=== PATIENT | female | born 1940 | race Caucasian/White ===

== ENCOUNTER 2023-11-05 18:27 | Inpatient (IN) | payer MEDICARE, BC, SELFPAY ==
[2023-11-05 11:45] VITALS: BP 136/99
[2023-11-05 12:08] LABS: % Basophils 0.5 % (0-2); % Eosinophils 1.4 % (0-6); % Immature Granulocytes 0.5 % (0-0.5); % Lymphocytes 22.4 % (20.5-51.1); % Monocytes 8.8 % (1.7-9.3); % Neutrophils 66.4 % (42.2-75.2); Absolute Eosinophils 0.1 10^3/uL (0-0.7); Absolute Lymphocytes 1.3 10^3/uL (1.2-3.4); Absolute Monocytes 0.5 10^3/uL (0.1-0.6); Absolute Neutrophils 3.8 10^3/uL (1.4-6.5); Hematocrit 35.9 % (37.0-47.0); Hemoglobin 12.2 g/dL (12.0-16.0); Mean Corpuscular Hgb 33.1 pg (27.0-31.0); Mean Corpuscular Volume 97.3 fL (81.0-99.0); Mean Platelet Volume 9.1 fL (7.4-10.4); Nucleated Red Blood Cells % 0 %; Platelet Count 242 10^3/uL (130-400); Red Blood Cell Count 3.69 10^6/uL (4.20-5.40); Red Cell Dist. Width 12.9 % (11.5-14.5); White Blood Cell Count 5.7 10^3/uL (4.8-10.8)
[2023-11-05 12:26] LABS: ALT (SGPT) 19 U/L (0-35); AST (SGOT) 38 U/L (14-36); Albumin 4.5 g/dl (3.5-5.0); Alkaline Phosphatase 84 U/L (38-126); Blood Urea Nitrogen 24 mg/dl (7-17); Calcium 9.5 mg/dl (8.4-10.2); Carbon Dioxide 26 mmol/L (22-30); Chloride 103 mmol/L (98-107); Glucose 105 mg/dl (70-99); Potassium 4.9 mmol/L (3.5-5.1); Sodium 138 mmol/L (135-145); Total Protein 7.5 g/dl (6.3-8.2); eGFR 49.55
[2023-11-05 12:31] LABS: NT-proBNP 1090 pg/ml
[2023-11-05 12:51] LABS: Total Bilirubin 0.6 mg/dl (0.2-1.3)
--- NOTE | 2023-11-05 14:10 | ED.GENMED ---
History of Present Illness
General
Chief Complaint: Breathing Problem
Source: patient
Exam Limitations: none
Time Seen by Provider: 11/05/23 13:36
Nursing documentation reviewed up to this point in time: agreed with
Travel History
Have you had any contact with someone who has COVID-19?: No
Do you have any symptoms of coronavirus? Fever > 100 degrees, chills, cough, shortness of breath, sore throat, loss of taste or smell, muscle aches, or headache?: No
History of Present Illness
History of Present Illness:
83 Y/O F with h/o remote afib no longer anticoagulated, had ablation x 2
h/o breast ca s/p lumpectomy
htn, hld
on baby asa
here for exertinoal dyspnea x 1 week
says prior to 1 week ago, she was able to walk normal distances without sob
but recently she has had worsening sob with exertion; she is able to walk around her house without symptoms but says that she walked half a city block yesterday and had to stop and catch her breath
this is not normal fo rher
no chest pain, pleuritic pain, nausea, vomiting, diarrhea, leg swelling, syncope, vomiting, cough
pt has not spoken with her doctor about this becuase she has only had the symptoms brielfy
Past History
Past History
ED Past Medical History: Arrthythmia (PAF ), CVA, HTN and Other (History of hepatitis while in college, arthritis, cataracts, anemia, breast cancer,breast cancer)
ED Past Surgical History: Cardiac (Ablation), Gynecological (2 ectopic pregnancies) and Other (Right lumpectomy and diagnoses breast cancer, polypectomy)
Social History
Tobacco: Former smoker
Personal:
Living: with family
Employment: Retired
Family History
Family History: Negative Early CAD
Review of Systems
Review of Systems
Allergies reviewed?: Yes
All Other Systems: Not applicable
Phy Exam
Physical Exam
Physical Exam:
GENERAL: Alert , in no apparent distress
EYE: pupils equal and reactive
NECK: Supple
ENT: o/p clr, mmm.
CARDIAC: tachy 100s . no murmur appreciated;
LUNGS: Clear breath sounds bilaterally, no acute respiratory distress, no wheezes/rales/rhonchi. speaking in full sentences
ABDOMEN: Soft, without focal tenderness, no r/g, no cvat, normal bowel sounds
NEUROLOGICAL: Alert and oriented, no focal neuro deficits
SKIN: Warm and dry, skin intact.
MUSCULOSKELETAL: No edema, well perfused. neg andree's sign
PSYCH: Normal and appropriate interaction.
Scores
Heart Failure Risk
Heart Failure Risk Score: Not Applicable
Course
Orders/Labs/Results
Orders:
Orders
11/05/23 11:48
Electrocardiogram (*1) Urgent
Reason for Study: Bradycardia / Tachycardia
EKG- Treatment ONCE
11/05/23 11:54
BNP [NT-proBNP] Urgent
Complete Blood Count/With Diff Urgent
Comprehensive Metabolic Panel Urgent
Troponin I Urgent
Comment: ADD-ON
11/05/23 13:34
CR Chest - 2 Views Urgent
Comment:
Reason For Exam: Increasing SOB over past few weeks
11/05/23 14:03
Add On- LAB Urgent
Tests Added?: troponin
11/05/23 14:24
CT Chest Pe Study Urgent
Comment:
Reason For Exam: exertional sob, tachycardia
11/05/23 17:19
Furosemide [Lasix] 20 mg IV NOW STA
11/05/23 17:35
Apixaban [Eliquis] 5 mg PO NOW STA
11/05/23 18:10
Admit/Transfer Patient As Directed
Co-Sign Provider:
Level of Care: Inpatient admission
Assign to:: Telemetry
Physician / Group: adalid
Diagnosis: atrial flutter
Reason for Telemetry: Arrhythmia
Date to Stop Telemetry: 11/08/23
Time to Stop Telemetry: 11:00
Reason for Hospitalization: atral flutter
Expected length of stay greater than two midnights?: Yes
ELOS- Estimated Length of Stay in days: 3
I certify the patient meets the requirements for IP care: Yes
11/05/23 18:11
Code Status As Directed
Resuscitation Status: Full Code
11/08/23 11:00
DC Protocol for Telemetry ONCE
Abnormal Lab Results
11/05/23
11:54
RBC 3.69 L 10^6/uL
(4.20-5.40)
Hct 35.9 L %
(37.0-47.0)
MCH 33.1 H pg
(27.0-31.0)
BUN 24 H mg/dl
(7-17)
Creatinine 1.1 H mg/dL
(0.6-1.0)
Glucose 105 H mg/dl
(70-99)
AST 38 H U/L
(14-36)
11/05/23 11:54
11/05/23 11:54
Vital Signs
Initial and Last Documented VS:
Initial Vital Signs
Temp Pulse Resp BP Pulse Ox
98.4 F 111 18 136/99 99
11/05/23 11:45 11/05/23 11:45 11/05/23 11:45 11/05/23 11:45 11/05/23 11:45
Last Documented Vital Signs
Temp Pulse Resp BP Pulse Ox
98.4 F 108 18 116/89 99
11/05/23 11:45 11/05/23 18:28 11/05/23 18:28 11/05/23 18:31 11/05/23 18:28
MDM/Problems Addressed
Differential Diagnosis Includes:
afib with rvr, chf
MDM/Problems Addressed:
83 y/o F with h/o remote afib s/p ablation on metoprolol
1 week of GASTON
no cp
HR 110s; no hypoxia; ekg is aflutter 2:1 no ischemia;
not anticoatulated
bnp 1000
pe study neg, small R pleural effusion
d/w dr. latham cards for sangnaren who recommended lasix, rate contorl as needed and NPO after midnight in case of ARAMIS cardioversion;
*Critical Care Note
Total Time (30-74mins, 75-104mins- exclusive of procedures): Not Applicable
ED Attending Note
-
Portions of this chart may have been created with voice recognition software.� Occasional wrong word or��sound alike� substitutions may have occurred due to the inherent limitations of voice recognition software.
Discharge Plan
Departure
Patient Disposition: Admit
Date of Disposition: 11/05/23
Time of Disposition: 17:18
Admit to: Med/Surg and Telemetry
Presentation/result/management discussed w/ accepting MD/DO: Hospitalist
Condition: Fair
Covid-19: Not Applicable
Discharge Problem:
Atrial fibrillation with rapid ventricular response
Interventions
Interventions:
*Risk Screen - Suicide Last Done: 11/05/23 11:45
*General Assessment Last Done: 11/05/23 11:45
*Neglect/Abuse Screening Last Done: 11/05/23 11:45
*ED COVID-19 Vaccine History Last Done: 11/05/23 11:45
ED- Cardiac Assessment Last Done: 11/05/23 13:29
ED- Pulmonary Assessment Last Done: 11/05/23 13:29
[2023-11-05 15:00] LABS: Troponin I < 0.012 ng/ml
--- NOTE | 2023-11-05 17:49 | HPS.HSE ---
Addendum entered and electronically signed by Ryann Fuentes MD 11/05/23 18:31:
see update note for addendum
Original Note:
Family Physician
-
Family Physician: Emanuel Madera
Chief Complaint
-
Short of breath
History of Present Illness
83-year-old with past medical history for A-fib status post cardiac ablation x 2, breast cancer, hypertension, hyperlipidemia presented to us with exertional dyspnea for 1 week. Denied orthopnea. Patient denied any chest pain. Patient denied any
gain or lower extremities edema patient denied fever, chills. Patient denied runny nose, congestion, cough. Patient denied abdominal pain, nausea, vomiting, diarrhea. Patient denied dysuria hematuria
Chest CT with pleural effusion. Patient received a dose of Lasix in ER patient also received dose of Eliquis in ER. Admitting for further management
Medical History
Past Medical History
Past Medical History: Reports Other
Additional Past Medical History:
TIA
Paroxysmal A-fib
Hyperlipidemia
Breast cancer
Hypertension
Lung cancer
Past Surgical History: Reports Other
Additional Past Surgical History:
Right upper lobe lung resection
Right breast cancer lumpectomy
Cardiac ablation
Social History
Tobacco: Former Smoker
Alcohol: Daily (Wine daily)
Family History
Family History: Not pertinent
Allergies / Home Medications
Allergies reflects when Allergies were last updated in [facility].
Home Medications with original date entered in [facility]
Allergy/Medication List:
Allergies
Allergy/AdvReac Type Severity Reaction Status Date / Time
codeine [Codeine] Allergy Unknown BP Verified 11/05/23 11:46
decreased
amoxicillin [Amoxicillin] Allergy headaches Verified 11/05/23 11:46
Home Medications
anastrozole 1 mg tablet 1 mg PO QPM 04/24/14
cholecalciferol (vitamin D3) 25 mcg (1,000 unit) capsule (Vitamin D3) 1,000 unit PO DAILY 09/26/16
metoprolol succinate 25 mg tablet,extended release 24 hr 37.5 mg PO BID 09/27/16
Review of Systems
-
Constitutional: Reports No Symptoms
EENT: Reports No Symptoms
Respiratory: Reports Trouble Breathing
Cardiac: Reports No Symptoms
Abdomen/GI: Reports No Symptoms
: Reports No Symptoms
Musculoskeletal: Reports No Symptoms
Skin: Reports No Symptoms
Neurological: Reports No Symptoms
Endocrine: Reports No Symptoms
Hematologic/Lymphatic: Reports No Symptoms
Psych: Reports No Symptoms
Physical Exam
Vital Signs
Vital Signs
Temp Pulse Resp BP Pulse Ox
98.4 F 109 18 136/99 99
11/05/23 11:45 11/05/23 14:06 11/05/23 14:06 11/05/23 11:45 11/05/23 14:06
Physical Exam
General: Well Developed, Well Nourished and No Apparent Distress
HEENT: NormoCephalic, Moist mucous membranes and Atraumatic
Respiratory: Clear
Cardiac: S1/S2 and Regular Rhythm; No Murmur or Rub
GI: Soft, Non Tender, Non Distended and Normal Bowel Sounds; No Organomegaly
Rectal: Deferred by Provider
Musculoskeletal: No Clubbing, No Cyanosis and No Edema
Skin: No Rash
Neuro: AO x 3 and Nonfocal/grossly intact
Psych: Calm
Laboratory Results
-
11/05/23 11:54
11/05/23 11:54
Laboratory Results
Total Bilirubin 0.6 mg/dl (0.2-1.3) 11/05/23 11:54
AST 38 U/L (14-36) H 11/05/23 11:54
ALT 19 U/L (0-35) 11/05/23 11:54
Alkaline Phosphatase 84 U/L (38-126) 11/05/23 11:54
Troponin I < 0.012 ng/ml 11/05/23 11:54
Data Reviewed
-
Diagnostic Radiology: Report Reviewed by me
CT Scan: Report Reviewed by me
Lab Data: Labs Reviewed by me
Impression/Plan
-
# Dyspneic on exertion likely from pleural effusion
-BNP 1090
-Lasix 20 daily
-Chest CT with no evidence of PE, small right pleural effusion
-Chest x-ray with loss of lung volume with pleural parenchymal airspace disease in the right hemithorax most consistent with prior right upper lobectomy.
-Received a dose of Lasix in ER
# A flutter
-N.p.o. after midnight for ARAMIS cardioversion
-Atrial tachycardia with 221 conduction versus atypical a flutter
-Patient received a dose of Eliquis in the ER
-Cardiology consulted
-Eliquis continued
# Chronic kidney disease stage II
-Creatinine 1.1, BUN 24
-Continue to monitor
# History of breast cancer
-Status postlumpectomy
# History of lung cancer
-Status post lobectomy
# Essential hypertension
-Metoprolol continued
# Hyperlipidemia
- statin continued
# DVT prophylaxis
-Eliquis
# CODE STATUS
-Full code
[2023-11-05] MEDS: LASIX 20 MG IV (17:50)
[2023-11-05] MEDS: ELIQUIS 5 MG PO (17:51)
[2023-11-05 18:28] VITALS: BP 138/102
--- NOTE | 2023-11-05 18:28 | W.PN.UPDATE ---
Update Note
Progress Note Update
I saw and examined the patient.
The UNDERCOVER AGENT Elpidio's note was reviewed and I agree with the note.
Comment: 83 y/o F hx of Afib s/p ablation, breast can, HTN, HLD presents with dyspnea x 1 week. no CP. No other complaints. Patient found to have pleural effusion, CHF and rapid Aflutter. Pt given IV Lasix and admitted with plan for Cardioversion in
AM.
Physical Exam
General: Well Developed, Well Nourished and No Apparent Distress
HEENT: NormoCephalic, Moist mucous membranes and Atraumatic
Respiratory: Clear
Cardiac: S1/S2 and Regular Rhythm; No Murmur or Rub
GI: Soft, Non Tender, Non Distended and Normal Bowel Sounds; No Organomegaly
Rectal: Deferred by Provider
Musculoskeletal: No Clubbing, No Cyanosis and No Edema
Skin: No Rash
Neuro: AO x 3 and Nonfocal/grossly intact
Psych: Calm
Assessment:
# Dyspneic on exertion likely from pleural effusion
-BNP 1090
-Lasix 20 daily
-Chest CT with no evidence of PE, small right pleural effusion
-Chest x-ray with loss of lung volume with pleural parenchymal airspace disease in the right hemithorax most consistent with prior right upper lobectomy.
-Received a dose of Lasix in ER
# A flutter
-N.p.o. after midnight for ARAMIS cardioversion
-Atrial tachycardia with 221 conduction versus atypical a flutter
-Patient received a dose of Eliquis in the ER
-Cardiology consulted
-Eliquis continued
# Chronic kidney disease stage II
-Creatinine 1.1, BUN 24
-Continue to monitor
# History of breast cancer
-Status postlumpectomy
# History of lung cancer
-Status post lobectomy
# Essential hypertension
-Metoprolol continued
# Hyperlipidemia
- statin continued
# DVT prophylaxis
-Eliquis
# CODE STATUS
-Full code
[2023-11-05 18:31] VITALS: BP 116/89
[2023-11-05] MEDS: TOPROL XL 37.5 MG PO (22:09)
[2023-11-05 22:13] VITALS: BP 127/94
[2023-11-05 22:14] VITALS: BMI 25.0
--- NOTE | 2023-11-05 23:00 | PTCARENOTE ---
Pt arrived to unit from ED and ambulated independently from stretcher into bed. Pt is AAOx3, occasionally forgetful but rings appropriately. Pt oriented to room, call muro within reach. VS on admission stable, no complaints of pain at this time.
[2023-11-05 23:03] VITALS: BMI 24.6
[2023-11-05 23:04] VITALS: BP 135/96
[2023-11-05 23:18] VITALS: BMI 24.6
[2023-11-06] VITALS (7 sets, daily range): BP systolic 91–129; BP diastolic 69–89; PULSE 110; O2SAT 97; BMI 24.5
[2023-11-06] MEDS: TYLENOL 650 MG PO (01:22)
--- NOTE | 2023-11-06 01:30 | PTCARENOTE ---
Pt reports 3/10 pain to lower back, no PRN pain meds ordered. House RIDDLER OPERATOR Thania Joyner notified, order for PRN Tylenol 650mg q4h acknowledged and provided to pt.
[2023-11-06 07:05] LABS: Hematocrit 36.1 % (37.0-47.0); Hemoglobin 12.5 g/dL (12.0-16.0); Mean Corp Hgb Conc. 34.6 g/dL (33.0-37.0); Mean Corpuscular Hgb 32.2 pg (27.0-31.0); Mean Platelet Volume 9.5 fL (7.4-10.4); Platelet Count 241 10^3/uL (130-400); Red Blood Cell Count 3.88 10^6/uL (4.20-5.40); Red Cell Dist. Width 12.8 % (11.5-14.5); White Blood Cell Count 6.2 10^3/uL (4.8-10.8)
[2023-11-06 07:33] LABS: ALT (SGPT) 19 U/L (0-35); AST (SGOT) 41 U/L (14-36); Albumin 4.3 g/dl (3.5-5.0); Alkaline Phosphatase 74 U/L (38-126); Blood Urea Nitrogen 23 mg/dl (7-17); Calcium 9.4 mg/dl (8.4-10.2); Carbon Dioxide 25 mmol/L (22-30); Chloride 101 mmol/L (98-107); Direct Bilirubin 0.3 mg/dl (0.0-0.4); Estimated Creatinine Clearance 45 ml/min; Glucose 95 mg/dl (70-99); Magnesium 2.1 mg/dl (1.6-2.3); Potassium 4.2 mmol/L (3.5-5.1); Sodium 136 mmol/L (135-145); Total Bilirubin 0.6 mg/dl (0.2-1.3); Total Cholesterol 215 mg/dl (50-199); Total Protein 7.4 g/dl (6.3-8.2); Triglyceride 100 mg/dl (10-149); Very Low Density Lipoprotein 20 mg/dl (0-30); eGFR 55.55
[2023-11-06 07:46] LABS: HDL Cholesterol 111 mg/dl; LDL Cholesterol, Calculated 84 mg/dl
[2023-11-06 07:58] LABS: TSH Reflex To Free T4 3.26 uIU/ml (0.47-4.68)
[2023-11-06] MEDS: TOPROL XL 37.5 MG PO ×2 (09:38→20:44)
[2023-11-06] MEDS: ELIQUIS 5 MG PO ×2 (09:39→20:44)
[2023-11-06] MEDS: LASIX 20 MG IV (09:39)
[2023-11-06] MEDS: ASPIR LOW (ENTERIC COATED) 81 MG PO (09:39)
--- NOTE | 2023-11-06 10:02 | CON.CAR ---
Addendum entered and electronically signed by Dwain Mcclure MD 11/06/23 13:10:
I saw and examined the patient.
The TRUSS BUILDER or PA's note was reviewed and I agree with the note.
Comment: General: Well developed, well nourished in NAD.
Neck: Supple, no JVD, HJR, carotids +2 B/L, no bruits bilaterally.
Heart: Non displaced PMI, irregular, no murmurs, No S3, S4, no rubs.
Lungs: Clear to auscultation bilaterally, no wheeze, rhonchi, rubs bilaterally,
normal expiratory phase.
Abdomen: Normal bowel sounds, soft, non-tender, non-distended.
Extremities: No clubbing, cyanosis or edema bilaterally.
Neuro: Grossly nonfocal, awake, alert and oriented x3.
Claudine has a history of A-fib status post ablations in 2010 2017, breast cancer, lung cancer status post lobectomy, hypertension, hyperlipidemia. She has had shortness of breath for 1 week. She came to the ER and found to be in rapid A-fib. CT of
chest was negative for pulm embolism and did show a small right pleural effusion and proBNP was elevated at 1090.
Will continue rate control with metoprolol. Will plan on ARAMIS/cardioversion on 11/07/2023. Also continue IV Lasix for another 24 hours then consider change to oral Lasix on 11/07/2023. Eliquis 5 mg p.o. twice daily has been started. Discussed with
patient and sister at bedside and patient's son was contacted.
Original Note:
Consultation
Consultation Request
Date/Time Consultation Requested: 11/05/2023
Date/Time Consultation Performed: 11/06/2023
Requesting Provider: Dr. Fuentes
Performing Provider: Yari Bonilla PA-C for Dr. Dwain Mcclure
Reason for Consultation: Atrial fibrillation
Medical History
-
History of Present Illness:
Patient is a 83-year-old with past medical history for A-fib status post PVI ablation x 2 (2010 & 2018), breast cancer, lung cancer s/p lobectomy, hypertension, hyperlipidemia presented to us with exertional dyspnea for 1 week. Patient was
previously followed by Dr. Jesus Del Rio however has not been seen in cardiology office since May 2021. She presented to emergency department 11/05/2023 with worsening dyspnea on exertion after her sister was visiting. She was noted to be
in atrial fibrillation with rapid ventricular response. Chest x-ray with loss of lung volume with pleural-parenchymal airspace in the right hemithorax consistent with prior right upper lobectomy. CT of chest was negative for PE and showed small
right pleural effusion. proBNP was noted to be elevated at 1090. Patient received IV Lasix in emergency department. Given she was found to be in atrial fibrillation she was placed on anticoagulation with Eliquis. Unclear how long patient has
been in atrial fibrillation.
PMH:
TIA 2009 with dysarthria
Paroxysmal A-fib
Status post PVI ablation 2010 at [facility]
Status post PVI ablation 09/21/2016
Medtronic Linq (has reached)
Hyperlipidemia
Hypertension
Breast cancer status post lumpectomy x 2
Hypertension
Lung cancer s/p right upper lobe lobectomy 2018
Cognitive impairment
Past Medical History
Past Medical History: Other (see hpi)
Past Surgical History: Cardiac (Cardiac ablation x 2) and Other (Right upper lobe lung resection Right breast cancer lumpectomy )
Social History
Tobacco: Former Smoker
Alcohol: Daily (wine daily)
Drug: None
Personal:
Living: Alone
Family History
Family History: CAD, Cancer and Other (Stroke)
Allergies / Home Medications
Allergy/AdvReac Type Severity Reaction Status Date / Time
amoxicillin [Amoxicillin] Allergy headaches Verified 11/05/23 11:46
codeine [Codeine] Allergy BP Verified 11/05/23 20:50
decreased
�Medication �Instructions �Recorded �Confirmed �Type
cholecalciferol (vitamin D3) 25 3,000 unit PO DAILY Supplement 09/26/16 11/05/23 History
mcg (1,000 unit) capsule (Vitamin
D3)
metoprolol succinate 25 mg 25 mg PO DAILY Blood Pressure 09/27/16 11/05/23 History
tablet,extended release 24 hr
aspirin 81 mg tablet,delayed 81 mg PO DAILY Blood Clot 11/05/23 11/05/23 History
release Prevention/Tx
omeprazole 20 mg tablet,delayed 20 mg PO DAILY Gastrointestinal 11/05/23 11/05/23 History
release Issue
rosuvastatin 5 mg tablet 5 mg PO DAILY High Cholesterol 11/05/23 11/05/23 History
Review of Systems
-
History Source: Patient and Family
Physical Exam
Vital Signs
Temp Pulse Resp BP Pulse Ox
97.3 F 92 18 113/81 96
11/06/23 08:12 11/06/23 08:12 11/06/23 08:12 11/06/23 08:12 11/06/23 08:12
GEN: No distress, awake, Ox3
HEENT: supple, anicteric, mmm
LUNGS: CTA, no wheezes/rales
CV: Irregularly irregular, S1/S2, 1/6 syst murmur
ABD: soft, BS+, NT/ND
EXT: No edema, clubbing or cyanosis
NEURO: Gross non-focal, except mild cognitive impairment and poor historian
SKIN: No rash, warm, dry, pink
Lab Results
11/06/23 05:46
11/06/23 05:46
Troponin I < 0.012 ng/ml 11/05/23 11:54
Hye-A-Cvgbcrcpuuy Pept 1090 pg/ml 11/05/23 11:54
Impression / Plan
-
PCP: Dr. Madera
Glass Cut Off Tender: Dr. Jesus Del Rio
Impression:
Presented 11/05/2023 with shortness of breath
Atrial fibrillation with rapid ventricular response
Acute heart failure, proBNP 1090
TIA 2010 with dysarthria
Paroxysmal A-fib
Status post PVI ablation 2010 at [facility]
Status post PVI ablation 09/21/2016
Medtronic Linq, reached [place].
Hyperlipidemia
Hypertension
Breast cancer status post lumpectomy x 2
Hypertension
Lung cancer s/p right upper lobe lobectomy 2018
Cognitive impairment
Echo 09/13/2016: EF 65 to 70%, hyperdynamic systolic function. Stage II diastolic dysfunction.
Plan:
-Presented 11/05/2023 with shortness of breath x 1 week
-Atrial fibrillation with rapid ventricular response, unknown duration.
-Patient has prior history of PVI ablation x 2 most recently 2018. She had not been in cardiology office since 2020.
-Not on anticoagulation prior to admission due to patient preference. She did have implantable Medtronic Linq monitor however this has reached [place] and is now non-functional.
-Continue rate control with metoprolol
-Keep n.p.o. after midnight with plan for ARAMIS/cardioversion on 11/07/2023
-Now on Eliquis 5 mg BID
-TSH 3.26
-Acute heart failure, proBNP 1090. Suspect this is secondary to atrial fibrillation with rapid ventricular response
-Continue IV diuresis with Lasix from another 24 hours then consider oral lasix
-Continue to monitor and trend renal function and electrolytes. Renal function currently stable 1.0
-Would check echocardiogram
-Chest CT with no evidence of PE, small right pleural effusion
-Chest x-ray with loss of lung volume with pleural parenchymal airspace disease in the right hemithorax most consistent with prior right upper lobectomy.
-Hyperlipidemia lipids TC 215, HDL 111, LDL 84, triglycerides 100. Continue rosuvastatin
-Hypertension. Blood pressure well-controlled with Toprol. Now on higher dose for rate control secondary to atrial fibrillation
Patient's sister and in the room and I contacted patient's son over the phone regarding plan and treatment. Dr. Fuentes and nursing also aware of plab
HPI:
Patient is a 83-year-old with past medical history for A-fib status post PVI ablation x 2 (2010 & 2017), breast cancer, lung cancer s/p lobectomy, hypertension, hyperlipidemia presented to us with exertional dyspnea for 1 week. Patient was
previously followed by Dr. Jesus Del Rio however has not been seen in cardiology office since May 2021. She presented to emergency department 11/05/2023 with worsening dyspnea on exertion. She was noted to be in atrial fibrillation with
rapid ventricular response. Chest x-ray with loss of lung volume with pleural-parenchymal airspace in the right hemithorax consistent with prior right upper lobectomy. CT of chest was negative for PE and showed small right pleural effusion.
proBNP was noted to be elevated at 1090. Patient received IV Lasix in emergency department. Given she was found to be in atrial fibrillation she was placed on anticoagulation with Eliquis. Unclear how long patient has been in atrial fibrillation.
Data Reviewed
-
EKG: Report Reviewed by me, Discussed with Physician, Discussed with Nurse, Discussed with Patient and Discussed with Family
Radiology: Report Reviewed by me, Discussed with Physician, Discussed with Nurse, Discussed with Patient and Discussed with Family
CT Scan: Report Reviewed by me, Discussed with Physician, Discussed with Patient and Discussed with Family
Labs: Labs Reviewed by me, Discussed with Physician, Discussed with Nurse, Discussed with Patient and Discussed with Family
Old Records: Reviewed
--- NOTE | 2023-11-06 10:20 | W.PN.HOSP.TC ---
Today's Communication/Plan
-
see outlined plan
Assessment / Plan
Assessment / Plan
Assessment:
acute CHF - presumed HFpEF
small right pleural effusion
- await Echo
- continue IV Lasix - requires intensive monitoring of I/Os, weights, lytes
- DCA cards consulted
A flutter, likely 2:1
Hx of Afib with prior ablations
- N.p.o. after midnight for ARAMIS cardioversion
- continue Metoprolol and Eliquis
Chronic kidney disease stage II
- creatinine 1.1, BUN 24
- continue to monitor
History of breast cancer
- s/p lumpectomy
History of lung cancer
- s/p lobectomy
Essential hypertension
- Metoprolol continued
Hyperlipidemia
- statin continued
DVT prophylaxis: Eliquis
Code: Full
Anticipated Discharge: > 48 hours
Subjective/Interval History
-
Date of Service: November 06, 2023
no complaints currently
Objective Data
-
Labs:
Laboratory Results
11/06/23
05:46
WBC 6.2
Hgb 12.5
Hct 36.1 L
Plt Count 241
Sodium 136
Potassium 4.2
Chloride 101
Carbon Dioxide 25
BUN 23 H
Creatinine 1.0
Glucose 95
Calcium 9.4
Total Bilirubin 0.6
AST 41 H
ALT 19
Alkaline Phosphatase 74
Vital Signs:
Vital Signs
Temp Pulse Resp BP Pulse Ox
97.3 F 92 18 113/81 96
11/06/23 08:12 11/06/23 08:12 11/06/23 08:12 11/06/23 08:12 11/06/23 08:12
Physical Exam
-
General: No Apparent Distress
HEENT: Normocephalic and Atraumatic
Respiratory: Negative Wheezes
Cardiac: Irregular Rhythm
Neuro: AO x 3
Psych: Calm
Data Reviewed
-
Total Time Spent with Patient (in minutes): 51
Labs: Labs Reviewed by me
[2023-11-06] MEDS: CRESTOR 5 MG PO (12:34)
[2023-11-06] MEDS: PROTONIX 40 MG PO (12:35)
--- NOTE | 2023-11-06 15:47 | CM ---
employment specialist/program manager reviewed patient's chart and met with patient and patient lives alone is independent with adl's and uses a cane or walker with ambulation. 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 Patient drives. Patient has a prescription
plan and uses [facility] pharmacy. Recommendation is for home with visiting nurses, options reviewed and patient is agreeable to [facility], [facility] liaison notified.
PCP: Dr. Madera
Plan; Home with [facility].
[2023-11-07 03:58] VITALS: BP 102/69
--- NOTE | 2023-11-07 04:00 | PTCARENOTE ---
Pt found wandering hallway @0400. When redirected towards room, pt became combative. When trying to reorient pt to environment, pt said she's 'had enough of this stuff.' After a few minutes of arguing pt became more redirectable, eventually going
back to room and asking for new change of gown and underwear. Pt reoriented to room and call muro. Medsitter remains in place, will continue to monitor.
[2023-11-07 05:44] VITALS: BMI 24.6
[2023-11-07 06:57] LABS: Hematocrit 37.9 % (37.0-47.0); Hemoglobin 12.9 g/dL (12.0-16.0); Mean Corpuscular Hgb 31.8 pg (27.0-31.0); Mean Corpuscular Volume 93.3 fL (81.0-99.0); Mean Platelet Volume 9.6 fL (7.4-10.4); Platelet Count 253 10^3/uL (130-400); Red Blood Cell Count 4.06 10^6/uL (4.20-5.40); Red Cell Dist. Width 12.8 % (11.5-14.5); White Blood Cell Count 6.6 10^3/uL (4.8-10.8)
[2023-11-07 07:00] VITALS: BP 99/67
[2023-11-07 07:33] LABS: Blood Urea Nitrogen 28 mg/dl (7-17); Carbon Dioxide 23 mmol/L (22-30); Chloride 99 mmol/L (98-107); Estimated Creatinine Clearance 41 ml/min; Glucose 116 mg/dl (70-99); Magnesium 2.2 mg/dl (1.6-2.3); Potassium 4.5 mmol/L (3.5-5.1); Sodium 135 mmol/L (135-145); eGFR 49.55
[2023-11-07] MEDS: TOPROL XL 37.5 MG PO (09:15)
[2023-11-07] MEDS: PROTONIX 40 MG PO (09:15)
[2023-11-07] MEDS: ASPIR LOW (ENTERIC COATED) 81 MG PO (09:16)
[2023-11-07] MEDS: LASIX 20 MG IV (09:16)
[2023-11-07] MEDS: ELIQUIS 5 MG PO (09:16)
[2023-11-07] MEDS: CRESTOR 5 MG PO (09:16)
--- NOTE | 2023-11-07 10:50 | VNURNOTE ---
CARRINGTONN attempted to meet pt at bedside, she was off the floor. Will contact patient later.
--- NOTE | 2023-11-07 12:12 | W.PN.HOSP.TC ---
Today's Communication/Plan
-
feed post-cardioversion
await cards recs for possible dc
Assessment / Plan
Assessment / Plan
Assessment:
acute HFpEF
small right pleural effusion
- Echo: LV EF 60%, mild cLVH
- continue IV Lasix - requires intensive monitoring of I/Os, weights, lytes; likely transition to PO at discharge
- DCA cards following
A flutter, likely 2:1
Hx of Afib with prior ablations
- s/p ARAMIS/CV 6/ with confucianism to NSR
- continue Metoprolol and Eliquis
Chronic kidney disease stage II
- creatinine 1.1, BUN 24
- continue to monitor
History of breast cancer
- s/p lumpectomy
History of lung cancer
- s/p lobectomy
Essential hypertension
- Metoprolol continued
Hyperlipidemia
- statin continued
DVT prophylaxis: Eliquis
Code: Full
Anticipated Discharge: Within 24 hours
Subjective/Interval History
-
Date of Service: November 07, 2023
seen post-CV
in sinus, no complaints
asking for diet
Objective Data
-
Labs:
Laboratory Results
11/07/23
06:06
WBC 6.6
Hgb 12.9
Hct 37.9
Plt Count 253
Sodium 135
Potassium 4.5
Chloride 99
Carbon Dioxide 23
BUN 28 H
Creatinine 1.1 H
Glucose 116 H
Calcium 10.0
Vital Signs:
Vital Signs
Temp Pulse Resp BP Pulse Ox
97.8 F 110 18 99/67 96
11/07/23 07:00 11/07/23 09:15 11/07/23 07:00 11/07/23 09:16 11/07/23 07:00
I&O
11/06/23 11/07/23 11/08/23
06:59 06:59 06:59
Intake Total 1659
Balance 1659
Physical Exam
-
General: No Apparent Distress
HEENT: Normocephalic and Atraumatic
Respiratory: Negative Wheezes
Cardiac: Regular Rhythm and S1/S2
GI: Soft
Neuro: Awake and Alert
Psych: Calm
Data Reviewed
-
Total Time Spent with Patient (in minutes): 42
Labs: Labs Reviewed by me
--- NOTE | 2023-11-07 12:26 | VNURNOTE ---
[facility] met with patient at bedside to discuss purpose of [facility] nurse visits, schedule and homebound status. Reviewed that visits at home will be 2-3 x per week to assess and teach medical management. [facility] brochure provided with contact information.
Explained to patient that [facility] would contact her for start of care in 1-2 days after discharge from . Patient wants to think about it. Will follow up prior to DC to determine her decision.
--- NOTE | 2023-11-07 14:11 | PTCARENOTE ---
pt aaox3 forgetful at times. states no pain. afib seen on monitor. pt walking to bathroom. video monitor in room to watch pt. room air breath sounds clear. pt taken to laboratory tester for robert cardioversion. pt now in nsr.
--- NOTE | 2023-11-07 14:18 | W.PN.CARDCBS ---
Addendum entered and electronically signed by Awais Blair MD 11/07/23 14:52:
I saw and examined the patient.
The Surveillance Camera Technician's note was reviewed and I agree with the note.
Comment:
GEN: No distress, awake, Ox3
HEENT: supple, anicteric, mmm
LUNGS: CTA, no wheezes/rales
CV: Reg, S1/S2, 1/6 syst LSB, no gallop
ABD: soft, BS+, NT/ND
EXT: No edema
NEURO: Gross non-focal
SKIN: No rash
plan:
Back in sinus rhythm. Continue Toprol 25 mg twice daily and Eliquis 5 mg twice daily.
D/C home on Lasix 20 mg daily as needed for weight gain.
Will discuss with family.
Addendum entered and electronically signed by Breana Watkins PA-C 11/07/23 14:46:
Called and talked with patient's son, Dean, for 9:31 min. Reviewed Afib and ARAMIS/CV, Linq and plans for OAC. Reviewed CHF and plans for Lasix PRN. Asked CM to call and talk to patient at his request to review VN and home PT.
Original Note:
Today's Communication / Plan
-
D/C to home on Toprol XL 25 mg BID and Eliquis 5 mg BID
D/C to home on Lasix 20 mg daily PRN weight gain
Will call her son with an update
Impression / Plan
-
PCP: Dr. Madera
Senior Marketing Engineer: Dr. Jesus Del Rio
Impression:
Presented 11/05/2023 with shortness of breath
Atrial fibrillation with rapid ventricular response
s/p successful ARAMIS/CV 11/07/23
Acute HFpEF
TIA 2009 with dysarthria
Paroxysmal A-fib
Status post PVI ablation 2010 at [facility]
Status post PVI ablation 09/21/2016
[employer] Linq, reached [facility].
Hyperlipidemia
Hypertension
Breast cancer status post lumpectomy x 2
Hypertension
Lung cancer s/p right upper lobe lobectomy 2017
Cognitive impairment
Echo 09/13/2016: EF 65 to 70%, hyperdynamic systolic function. Stage II diastolic dysfunction.
Echo 11/06/23: EF 60-65%, normal wall motion, mild conc LVH, normal RV size and function, no MR
Plan:
-Patient had a successful ARAMIS/CV 11/07/23. Post-CV ECG reviewed by me shows SR with 1st degree AV block and QTc 468 ms.
-Patient with known paroxysmal Afib and was not on OAC prior to admission and instead was being monitored for recurrent atrial arrhythmia via Linq. Patient was started on Eliquis 5 mg BID (age 83, wt 77.7 kg and Cre 1.1) and will take for at least 4
weeks following CV and can then decide further timing with her outpatient managed care nurse
-Toprol XL dose increased to 37.5 mg BID and BP 99/67. Will discharge to home on Toprol XL 25 mg BID
-Acute HF in the setting of rapid Afib. Diuresed with Lasix 20 mg IV daily and weight is down about 2 lbs. Patient was not taking a diuretic prior to admission. Will discharge to home on a PRN regimen for Lasix 20 mg PO daily PRN weight gain.
-Hyperlipidemia lipids TC 215, HDL 111, LDL 84, triglycerides 100. Continue rosuvastatin
-Hypertension. Blood pressure well-controlled with Toprol. Now on higher dose for rate control secondary to atrial fibrillation
-Will arrange for cardiology follow up locally if patient is interested, but previously not seen in the [facility] office since 05/2021
-Linq is no longer functioning
HPI:
Patient is a 83-year-old with past medical history for A-fib status post PVI ablation x 2 (2010 & 2018), breast cancer, lung cancer s/p lobectomy, hypertension, hyperlipidemia presented to us with exertional dyspnea for 1 week. Patient was
previously followed by Dr. Jesus Del Rio however has not been seen in cardiology office since May 2021. She presented to emergency department 11/05/2023 with worsening dyspnea on exertion. She was noted to be in atrial fibrillation with
rapid ventricular response. Chest x-ray with loss of lung volume with pleural-parenchymal airspace in the right hemithorax consistent with prior right upper lobectomy. CT of chest was negative for PE and showed small right pleural effusion.
proBNP was noted to be elevated at 1090. Patient received IV Lasix in emergency department. Given she was found to be in atrial fibrillation she was placed on anticoagulation with Eliquis. Unclear how long patient has been in atrial fibrillation.
Progress Note - Senior Marketing Engineer
Subjective
Date of Service: November 07, 2023
She feels well
Objective
Labs:
11/07/23 06:06
11/07/23 06:06
Labs
Hgb 12.9 g/dL (12.0-16.0) 11/07/23 06:06
Hct 37.9 % (37.0-47.0) 11/07/23 06:06
Plt Count 253 10^3/uL (130-400) 11/07/23 06:06
Sodium 135 mmol/L (135-145) 11/07/23 06:06
Potassium 4.5 mmol/L (3.5-5.1) 11/07/23 06:06
BUN 28 mg/dl (7-17) H 11/07/23 06:06
Creatinine 1.1 mg/dL (0.6-1.0) H 11/07/23 06:06
Glucose 116 mg/dl (70-99) H 11/07/23 06:06
Troponins
11/05/23
11:54
Troponin I < 0.012
Vital Signs and I&O:
Vital Signs
Temp Pulse Resp BP Pulse Ox
97.8 F 110 18 99/67 96
11/07/23 07:00 11/07/23 09:15 11/07/23 07:00 11/07/23 09:16 11/07/23 07:00
Vital Signs
Temp Pulse Resp BP Pulse Ox
97.8 F 110 18 99/67 96
11/07/23 07:00 11/07/23 09:15 11/07/23 07:00 11/07/23 09:16 11/07/23 07:00
Intake & Output
11/05/23 11/06/23 11/07/23 11/08/23
06:59 06:59 06:59 06:59
Intake Total 1660 / 1660
Balance 1660 / 1660
Physical Exam
Physical Exam
GEN: AAOx3
HEENT: mmm
LUNGS: No audible wheeze
CV: SR on tele
ABD: ND
EXT: No edema
NEURO: Gross non-focal
SKIN: No rash
--- NOTE | 2023-11-07 15:01 | W.DS.TRANS ---
DC Summary - Certified Coder
-
Discharge Instructions:
Sleep Apnea Risk Intermediate
Discharge Diagnosis/Procedures acute HFpEF, Aflutter s/p CV 6/5 restored to NSR
Diet Regular,2 Gram Sodium,Restrict fluids to 64 oz
Activity As tolerated
Other Services VN
Specialty Instructions Weigh Daily
Instructions:
Stand-Alone Forms:
Changes to Home Medications: Yes
Discharge Medications:
DC Medications w/original date entered in [employer]
cholecalciferol (vitamin D3) 25 mcg (1,000 unit) capsule (Vitamin D3) 3,000 unit PO DAILY Supplement 09/26/16
omeprazole 20 mg tablet,delayed release 20 mg PO DAILY Gastrointestinal Issue 11/05/23
rosuvastatin 5 mg tablet 5 mg PO DAILY High Cholesterol 11/05/23
apixaban 5 mg tablet (Eliquis) 5 mg PO BID Blood clot prevention/tx #60 tabs 11/07/23
furosemide 20 mg tablet (Lasix) 20 mg PO DAILY PRN weight gain #30 tabs 11/07/23
metoprolol succinate 25 mg tablet,extended release 24 hr (Toprol XL) 25 mg PO BID Arrhythmia #60 tabs 11/07/23
Home Medication Changes
toprol doubled
Eliquis started; ASA stopped
prn Lasix
Pending Results: No
Total time spent discharging patient (in min): 42
--- NOTE | 2023-11-07 15:25 | VNURNOTE ---
Follow up- MARY Montoya updated this RN that patient agreeable to [facility]. Referral in [facility]. Nurses will reach out to patient in 1-2 days after DC home. Patient aware.
--- NOTE | 2023-11-07 15:42 | CM ---
Patient is for discharged to home today with [facility].
Plan; Home with [facility].
[2023-11-07 16:42] VITALS: BP 104/68
== END 2023-11-07 16:43 | disposition home health service (06) | DRG 291 ==
LOC: 4 WEST ACU 18:27
PROVIDERS: Emergency Medicine; Internal Medicine Cardiovascular Disease; Registered Nurse; ADMITTING PHYSICIAN Internal Medicine; EMERGENCY PHYSICIAN Student in an Organized Health Care Education/Training Program; FAMILY PHYSICIAN Family Medicine; OTHER PHYSICIAN Internal Medicine Cardiovascular Disease
PROC: 5A2204Z Restoration of Cardiac Rhythm, Single (ICD-10-PCS; 2023-11-07)
PROC: B24BZZ4 Ultrasonography of Heart with Aorta, Transesophageal (ICD-10-PCS; 2023-11-07)
DX: I13.0 Hypertensive heart and chronic kidney disease with heart failure and stage 1 through stage 4 chronic kidney disease, or unspecified chronic kidney disease (principal); I50.31 Acute diastolic (congestive) heart failure; I48.92 Unspecified atrial flutter; I48.0 Paroxysmal atrial fibrillation; E78.00 Pure hypercholesterolemia, unspecified; N18.2 Chronic kidney disease, stage 2 (mild); R41.89 Other symptoms and signs involving cognitive functions and awareness; M19.90 Unspecified osteoarthritis, unspecified site; Z79.01 Long term (current) use of anticoagulants; Z88.5 Allergy status to narcotic agent; Z85.3 Personal history of malignant neoplasm of breast; Z88.0 Allergy status to penicillin; Z85.118 Personal history of other malignant neoplasm of bronchus and lung; Z90.2 Acquired absence of lung [part of]; Z86.73 Personal history of transient ischemic attack (TIA), and cerebral infarction without residual deficits; Z82.3 Family history of stroke; Z82.49 Family history of ischemic heart disease and other diseases of the circulatory system; Z79.82 Long term (current) use of aspirin; Z87.891 Personal history of nicotine dependence
CPT/HCPCS: 71046; 71275; 80048; 80053; 80061; 82248; 83735; 83880; 84443; 84484; 85025; 85027; 92960; 93005; 93306; 93312; 93320; 93325; 97162; 97167; 99285; Q9967

== ENCOUNTER 2023-11-09 02:06 | Inpatient (IN) | payer MEDICARE, BC, SELFPAY ==
[2023-11-08 21:51] VITALS: BP 116/86; BMI 24.8
[2023-11-08 22:10] LABS: % Basophils 0.3 % (0-2); % Eosinophils 0.3 % (0-6); % Immature Granulocytes 0.3 % (0-0.5); % Lymphocytes 18.1 % (20.5-51.1); % Monocytes 7.8 % (1.7-9.3); % Neutrophils 73.2 % (42.2-75.2); Absolute Lymphocytes 1.1 10^3/uL (1.2-3.4); Absolute Monocytes 0.5 10^3/uL (0.1-0.6); Absolute Neutrophils 4.3 10^3/uL (1.4-6.5); Hematocrit 27.4 % (37.0-47.0); Hemoglobin 9.2 g/dL (12.0-16.0); Mean Corp Hgb Conc. 33.6 g/dL (33.0-37.0); Mean Corpuscular Hgb 31.8 pg (27.0-31.0); Mean Corpuscular Volume 94.8 fL (81.0-99.0); Nucleated Red Blood Cells % 0 %; Red Blood Cell Count 2.89 10^6/uL (4.20-5.40); Red Cell Dist. Width 12.6 % (11.5-14.5); White Blood Cell Count 5.9 10^3/uL (4.8-10.8)
[2023-11-08 22:25] LABS: Mean Platelet Volume 9.3 fL (7.4-10.4); Platelet Count 198 10^3/uL (130-400)
[2023-11-08 22:26] LABS: ALT (SGPT) 15 U/L (0-35); AST (SGOT) 29 U/L (14-36); Albumin 3.8 g/dl (3.5-5.0); Alkaline Phosphatase 59 U/L (38-126); Blood Urea Nitrogen 77 mg/dl (7-17); Calcium 9.2 mg/dl (8.4-10.2); Carbon Dioxide 23 mmol/L (22-30); Chloride 100 mmol/L (98-107); Estimated Creatinine Clearance 39 ml/min; Glucose 168 mg/dl (70-99); Sodium 134 mmol/L (135-145); Total Bilirubin 0.3 mg/dl (0.2-1.3); Total Protein 6.4 g/dl (6.3-8.2); eGFR 44.64
--- NOTE | 2023-11-08 22:41 | ED.GENMED ---
History of Present Illness
General
Chief Complaint: Fainting/Passed Out
Source: patient and family (Sister)
Exam Limitations: none
Time Seen by Provider: 11/08/23 22:20
Travel History
Have you had any contact with someone who has COVID-19?: No
Do you have any symptoms of coronavirus? Fever > 100 degrees, chills, cough, shortness of breath, sore throat, loss of taste or smell, muscle aches, or headache?: No
History of Present Illness
History of Present Illness:
This is a 83 year old female that comes in with c/o fall. States that she was in the hospital for 3 days and had a Cardioversion yesterday. States that she went home yesterday and she just was not feeling good. States that she did not feel good this
morning. States that she felt wobbly with walking and faint this morning. States that she was started on Eliquis and her Metoprolol was changed to 25mg BID. States that she eat and no sooner she felt sick and needed to lay down. States that she did
vomit. States that she had some lower back pain today as she was using a heating pad and her left leg the upper thigh was uncomfortable. States that she has a headache. Denies any fever, chills, chest pain, abd pain, diarrhea, dizziness, urinary
burning.
Past History
Past History
ED Past Medical History: Arrthythmia (PAF ), Cancer (Breast CA, Lung CA), COPD, CVA (With aphasia), HTN, Hypercholesterolemia, Other and Other (History of hepatitis while in college, arthritis, cataracts, anemia, )
ED Past Surgical History: Cardiac (Ablation, Cardioversion ), Gynecological (2 ectopic pregnancies) and Other (Right lumpectomy and diagnoses breast cancer, polypectomy, Upper right lobe lung removed)
Social History
Tobacco: Former smoker
Alcohol: Daily (Wine 1-3)
Personal:
Living: with family
Employment: Retired
Family History
Family History: Negative Early CAD
Review of Systems
Review of Systems
All Other Systems: ROS reviewed and negative except as documented in HPI and ROS
Constitutional: Reports no symptoms; Denies fever or chills
EENT: Reports no symptoms
Respiratory: Reports trouble breathing; Denies cough
Cardiac: Reports no symptoms; Denies chest pain
ABD/GI: Reports nausea and vomiting; Denies abdominal pain or diarrhea
: Denies dysuria, frequency or urgency
Musculoskeletal: Reports no symptoms
Skin: Reports no symptoms
Neurological: Reports headache and weakness; Denies dizzy
Psychiatric: Reports no symptoms
Phy Exam
General Physical Exam
General Presentation: no apparent distress
General age: appears stated age
General Skin: warm and dry
General Habitus: elderly
General Mental: alert
General Hydration: dry mucous membranes
ENT Exam
ENT Exam: TM's normal, pharynx normal and neck supple
Eye Exam
Eye Exam: EOMI
Cardiovascular Exam
Cardiovascular Exam: regular rate/rhythm, no edema and normal peripheral pulses
Pulmonary Exam
Pulmonary Exam: lungs clear, no respiratory distress, no rales, chest non tender, no crackles, no rhonchi, no wheezing and no cough
Gastrointestinal Exam
Gastrointestinal Exam: normal bowel sounds, non tender, soft, no organomegaly, no pulsatile mass and non distended
Musculoskeletal Exam
Musculoskeletal Exam: full ROM and no edema
Skin Exam
Skin Exam: normal color, warm/dry, no rash and no petechia
Psychiatric Exam
Psychiatric Exam: normal mood/affect (Expressive aphasia noted)
Course
Orders/Labs/Results
Orders:
Orders
11/08/23 21:57
Electrocardiogram (*1) Urgent
Reason for Study: Chest Pain
EKG- Treatment ONCE
IV Insert/Care/Rem.- Treatment PRN
11/08/23 22:03
Complete Blood Count/With Diff Urgent
Comprehensive Metabolic Panel Urgent
11/08/23 22:41
CT Head W/o Iv Contrast Urgent
Comment:
Reason For Exam: Syncope, trouble walking
11/08/23 22:47
CR Chest - 2 Views Urgent
Comment:
Reason For Exam: SOB
11/08/23 22:49
Orthostatic VS- Treatment ONCE
11/08/23 22:52
0.9% Sodium Chloride 1000 ml [Nss] 1,000 ml IV BOLUS
11/08/23 23:16
Troponin I Urgent
Abnormal Lab Results
11/08/23
22:03
RBC 2.89 L 10^6/uL
(4.20-5.40)
Hgb 9.2 L D g/dL
(12.0-16.0)
Hct 27.4 L %
(37.0-47.0)
MCH 31.8 H pg
(27.0-31.0)
Absolute Lymphs (auto) 1.1 L 10^3/uL
(1.2-3.4)
Lymphocytes % 18.1 L %
(20.5-51.1)
Sodium 134 L mmol/L
(135-145)
BUN 77 H mg/dl
(7-17)
Creatinine 1.2 H mg/dL
(0.6-1.0)
Glucose 168 H mg/dl
(70-99)
11/08/23 22:03
11/08/23 22:03
Vital Signs
Initial and Last Documented VS:
Initial Vital Signs
Pulse Resp BP Pulse Ox
96 13 116/86 98
11/08/23 21:51 11/08/23 21:51 11/08/23 21:51 11/08/23 21:51
Last Documented Vital Signs
Temp Pulse Resp BP Pulse Ox
98.3 F 71 15 104/74 99
11/08/23 22:05 11/09/23 00:00 11/09/23 00:00 11/09/23 00:00 11/08/23 23:54
MDM/Problems Addressed
Differential Diagnosis Includes:
Dehydration, Hypotension
MDM/Problems Addressed:
This is a 83 year old female that comes in with c/o not feeling well. Told that she eat dinner tonight and then needed to lay down and she vomited. States that she had a cardiovertion yesterday and was discharged from the hospital. States that she
was not feeling well then. States that her Metoprolol was increased to 25mg BID and she was started on Eliquis.
Will get labs. Ct head and given IV fluids. Will also check urine
Back into see patient. Explained that her blood work shows that she is dehydrated. Due to patient weakness and dehydrated will admit. Hospitalist notified.
Chronic conditions affecting care:
NA
Acute Exacerbation and/or Progression of Chronic Illness:
NA
*Radiology
Radiology exam reviewed: preliminary read by ED provider (Chest- No acute disease of the chest. Right upper lobectomy), radiology read reviewed (CT head- night hawk- NO acute intracranial hemorrhage, herniation, or hydrocphalus. Chronic
microangiopathic changes, including periventricular and deep white matter hypoattenuation. NO CT evidence of superimposed actue arge vascular territory ischemia, although MRI is most sensitive for this ) and other (CT cont- diagnosis. NO acute
calvarial fracture. The paranasal sinuses and mastoid air cells are clear where seen. )
*Pulse Oximetry
Patient hypoxic: no
*Wire Stripping Machine Operator Interpretation
Rate: normal
Heart Rate: 92
Rhythm: sinus
*Critical Care Note
Total Time (30-74mins, 75-104mins- exclusive of procedures): Not Applicable
ED Attending Note
-
Portions of this chart may have been created with voice recognition software.� Occasional wrong word or��sound alike� substitutions may have occurred due to the inherent limitations of voice recognition software.
Discharge Plan
Departure
Patient Disposition: Admit
Date of Disposition: 11/08/23
Time of Disposition: 23:45
Admit to: Telemetry
Presentation/result/management discussed w/ accepting MD/DO: Hospitalist
Patient with high blood pressure during this ER visit?: No
Covid-19: Not Applicable
Discharge Problem:
Weakness, Acute dehydration
Prescriptions:
No Action
cholecalciferol (vitamin D3) [Vitamin D3] 1,000 UNIT capsule
3,000 unit PO DAILY
Patient Comments:
Pt reports that her dose was increased from 1000 units to 3000 units
rosuvastatin 5 mg Tablet
5 mg PO DAILY
omeprazole 20 mg Tablet,Delayed Release (Dr/Ec)
20 mg PO DAILY
Eliquis 5 mg Tablet
5 mg PO BID Qty: 60 0RF
metoprolol succinate [Toprol XL] 25 mg tablet extended release 24 hr
25 mg PO BID Qty: 60 11RF
furosemide [Lasix] 20 mg tablet
20 mg PO DAILY PRN (Reason: weight gain) Qty: 30 3RF
Referrals:
Isaac Madera MD [Family Provider] -
Interventions
Interventions:
*Risk Screen - Suicide Last Done: 11/08/23 21:51
*General Assessment Last Done: 11/08/23 21:51
*Neglect/Abuse Screening Last Done: 11/08/23 21:51
ED- Fall Risk Assessment Last Done: 11/08/23 21:51
*ED COVID-19 Vaccine History Last Done: 11/08/23 21:51
ED- Cardiac Assessment Last Done: 11/08/23 21:51
ED- Neurological Assessment Last Done: 11/08/23 21:51
Discharge Date and Time
Print Language: S[place] K[place]
[2023-11-08 23:14] VITALS: BP 105/70
[2023-11-08 23:16] VITALS: BP 101/71; BP 105/70; BP 111/78; PULSE 101; PULSE 89; PULSE 94
[2023-11-08 23:21] VITALS: BP 111/78
[2023-11-08 23:22] VITALS: BP 101/71
[2023-11-08 23:54] VITALS: BP 106/71
[2023-11-09] VITALS (22 sets, daily range): BP systolic 90–121; BP diastolic 59–90; PULSE 70; O2SAT 99–100; BMI 26.1
[2023-11-09] LABS: Troponin I 0.013 ng/ml
[2023-11-09] MEDS: NSS 1000 IV (00:10)
--- NOTE | 2023-11-09 01:01 | HPS.HSE ---
Addendum entered and electronically signed by Denise Perla MD 11/09/23 02:50:
drop in Hg to 8.5. With continued drop I am more worried about RP bleed. Patient currently hemodynamically stable. I will send for CT Angio Abdomen/Pelvis
hold Eliquis until scan complete
blood consent signed. Given drop > 4 point drop in Hg in < 48 hours and near syncope will transfuse 1 unit PRBC
Original Note:
Family Physician
-
Family Physician: Isaac Madera
Chief Complaint
-
weakness
History of Present Illness
Ms. Claudine Ward is a 83 yo woman with hx HFpEF, atrial fibrillation s/p cardiac ablation x 2, breast CA s/p lumpectomy, lung cancer s/p lobectmy, essential HTN, HLD, recent admission 11/04-11/06 for acute heart failure exacerbation and atrial flutter s/p
cardioversion on 11/06 presents to the ER with near syncope. On discharge patient's Metoprolol was increased from daily to BID and she was started on lasix as needed.
Patient is interviewed at 1:30 AM and at this point she is a poor historian. She states that she 'wasn't feeling well' when she got home and her sister called 911. When asked if she was dizzy she said yes. She currently denies back pain and hip
pain. She states she had mild back pain earlier. No black or bloody stools, she had a normal BM today. She took her Eliquis last evening. Patient denied feeling sick after eating to me but per ER note, she needed to lay down after eating. Per
triage note she had near syncope in driveway. She was hypotensive when seen by EMS s/p fluids and was feeling better.
Patient denies chest pain of palpitations. Denies shortness of breath. No LE swelling. No abdominal pain. She currently denies nausea.
Medical History
Past Medical History
Past Medical History: Reports Other
Additional Past Medical History:
TIA
Paroxysmal A-fib
Hyperlipidemia
Breast cancer
Hypertension
Lung cancer
Past Surgical History: Reports Other
Additional Past Surgical History:
Right upper lobe lung resection
Right breast cancer lumpectomy
Cardiac ablation
Social History
Tobacco: Former Smoker
Alcohol: Daily (Wine daily)
Family History
Family History: Not pertinent
Allergies / Home Medications
Allergies reflects when Allergies were last updated in [employer] ([employer]).
Home Medications with original date entered in [employer] ([employer])
Allergy/Medication List:
Allergies
Allergy/AdvReac Type Severity Reaction Status Date / Time
amoxicillin [Amoxicillin] Allergy headaches Verified 11/05/23 11:46
codeine [Codeine] Allergy BP Verified 11/05/23 20:50
decreased
Home Medications
cholecalciferol (vitamin D3) 25 mcg (1,000 unit) capsule (Vitamin D3) 3,000 unit PO DAILY Supplement 09/26/16
omeprazole 20 mg tablet,delayed release 20 mg PO DAILY Gastrointestinal Issue 11/05/23
rosuvastatin 5 mg tablet 5 mg PO DAILY High Cholesterol 11/05/23
apixaban 5 mg tablet (Eliquis) 5 mg PO BID Blood clot prevention/tx #60 tabs 11/07/23
furosemide 20 mg tablet (Lasix) 20 mg PO DAILY PRN weight gain #30 tabs 11/07/23
metoprolol succinate 25 mg tablet,extended release 24 hr (Toprol XL) 25 mg PO BID Arrhythmia #60 tabs 11/07/23
Review of Systems
-
History Source: Patient
A 12 point ROS was completed and negative except as noted: Yes
Physical Exam
Vital Signs
Vital Signs
Temp Pulse Resp BP Pulse Ox
98.3 F 74 30 104/74 97
11/08/23 22:05 11/09/23 00:45 11/09/23 00:45 11/09/23 00:00 11/09/23 00:15
Physical Exam
General: No Apparent Distress
HEENT: PERRLA
Respiratory: Clear; No Wheezes
Cardiac: S1/S2 and Regular Rhythm
GI: Soft and Non Tender
Musculoskeletal: No Cyanosis and Other (no lower back bruising or tenderness; full ROM b/l hips )
Skin: Warm and Dry; No Rash
Neuro: AO x 3
Psych: Calm
Laboratory Results
-
11/08/23 22:03
11/08/23 22:03
Laboratory Results
Total Bilirubin 0.3 mg/dl (0.2-1.3) 11/08/23 22:03
AST 29 U/L (14-36) 11/08/23 22:03
ALT 15 U/L (0-35) 11/08/23 22:03
Alkaline Phosphatase 59 U/L (38-126) 11/08/23 22:03
Troponin I 0.013 ng/ml 11/08/23 23:16
Data Reviewed
-
Diagnostic Radiology: Report Reviewed by me
Lab Data: Labs Reviewed by me
Impression/Plan
-
Ms. Claudine Ward is a 83 yo woman with hx HFpEF, atrial fibrillation s/p cardiac ablation x 2, breast CA s/p lumpectomy, lung cancer s/p lobectomy, essential HTN, HLD, recent admission 11/04-11/06 for acute heart failure exacerbation and atrial flutter
s/p cardioversion on 11/06 presents to the ER with near syncope. On discharge patient's Metoprolol was increased from daily to BID and she was started on lasix as needed.
Triage VS: T 97.3, P 92, RR 18, BP 113/81, SpO2 96%
LABS: WBC 5.9, Hg 9.2, PLT 198, Na 134, K+ 4.0, BUN 77, Cr 1.2, Glucose 168
MAR: 1L Bolus
EKG: NSR @ 91, 1st degree AV block
CXR
Head CT
Weakness
Near Syncope
Anemia
-s/p fluids with improvement in symptoms. Patient may have been over diuresed last admission/ AE from increased metoprolol? Weight this ER visit higher, may be inaccurate.
-given quick improvement with fluids, patient denies current back or hip pain less concern for RP bleed. She denies black or bloody stools. Drop in Hg may be from dilution versus lab error? I am repeating Hg now. If continues to drop will need to
consider CT A/P with angiogram and holding AC although this is is risky with recent cardioversion
-repeat Hg and type and screen now
-F/U iron studies
-hold Metoprolol for now
-cardiology consult
-continue Eliquis given recent cardioversion
Aflutter
Hx Afib with Prior Ablations
-s/p ARAMIS/CV 11/06 with [facility] to NSR, patient remains in sinus in ER
GERD
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
CKD Stage II
-creatinine at baseline
History of breast cancer
- s/p lumpectomy
History of lung cancer
- s/p lobectomy
Hyperlipidemia
- statin continued
DVT prophylaxis: Eliquis
Code: Full
76 minutes spent on patient evaluation, medical decision making, coordination of care
[2023-11-09 01:58] LABS: Hemoglobin 8.5 g/dL (12.0-16.0)
[2023-11-09 02:01] LABS: Iron 78 ug/dl (37-170)
[2023-11-09 02:11] LABS: Percent Saturation 31 % (20-50); Total Iron Binding Capacity 246 ug/dl (265-497)
[2023-11-09 02:37] LABS: Ferritin 64.8 ng/ml (11.1-264.0)
[2023-11-09 05:44] LABS: Hematocrit 24.7 % (37.0-47.0); Hemoglobin 8.3 g/dL (12.0-16.0); Mean Corp Hgb Conc. 33.6 g/dL (33.0-37.0); Mean Corpuscular Hgb 32.8 pg (27.0-31.0); Mean Corpuscular Volume 97.6 fL (81.0-99.0); Mean Platelet Volume 9.7 fL (7.4-10.4); Platelet Count 185 10^3/uL (130-400); Red Blood Cell Count 2.53 10^6/uL (4.20-5.40); Red Cell Dist. Width 12.5 % (11.5-14.5); White Blood Cell Count 7.6 10^3/uL (4.8-10.8)
[2023-11-09 05:47] LABS: Blood Urea Nitrogen 69 mg/dl (7-17); Calcium 8.8 mg/dl (8.4-10.2); Carbon Dioxide 21 mmol/L (22-30); Chloride 105 mmol/L (98-107); Estimated Creatinine Clearance 44 ml/min; Glucose 107 mg/dl (70-99); Magnesium 2.1 mg/dl (1.6-2.3); Potassium 4.2 mmol/L (3.5-5.1); Sodium 134 mmol/L (135-145); eGFR 55.55
[2023-11-09 05:58] LABS: Troponin I 0.017 ng/ml
--- NOTE | 2023-11-09 06:30 | PTCARENOTE ---
Received patient AAOx4, following commands, SWEET, denying any pain. Normal sinus, 60s-70s. BP stable, 90s-100s/50s-60s. Positive radial and pedal pulses bilaterally. Normothermic. Lung sounds clear, diminished at the bases. 98% on room air. Positive
bowel sounds, abdomen soft, round, nontender. On a 2g sodium diet. Ambulates to bathroom independently, standby assist, steady gait. Skin intact. Prehospital IV removed, #18 left antecubital inserted, patent, WNL. CHG bath done, labs sent. 1 unit
PRBCs hung, infusing. Call muro within reach. Warm blankets provided.
--- NOTE | 2023-11-09 07:45 | CON.CAR ---
Addendum entered and electronically signed by Mendel Kirk MD 11/09/23 16:10:
I saw and examined the patient.
The Mercury Washer's note was reviewed and I agree with the note.
Comment: Briefly, 83-year-old woman past medical history of heart failure preserved ejection fraction and atrial fibrillation status post direct-current cardioversion earlier this week who presents with presyncope
Found to have anemia with drop in hemoglobin from 12.9 down to 8.3 over the course of 48 hours and received RBC transfusion
Eliquis currently on hold given transfusion dependent anemia - reviewed with patient risks/benefits with recent direct-current cardioversion
Tentative plan for GI workup pending Eliquis washout
Original Note:
Consultation
Consultation Request
Date/Time Consultation Requested: 11/09/2023
Date/Time Consultation Performed: 11/09/2023
Requesting Provider: Dr. Perla
Performing Provider: Yari Bonilla PA-C for Dr. Kirk
Reason for Consultation: Near syncope
Medical History
-
History of Present Illness:
Patient is a 83 yo woman with PMH of HFpEF, atrial fibrillation/flutter s/p cardiac ablation x 2, breast CA s/p lumpectomy, lung cancer s/p lobectomy, HTN, HLD who was recently admitted 11/04-11/06 for acute heart failure exacerbation likely due to new
onset paroxysmal atrial flutter s/p cardioversion on 11/06 and started on Eliquis and Toprol doubled to 25 mg BID who presented to the ED 11/08/2023 with near syncope. Patient reports following discharge she 'just was not feeling well' and admitted to
feeling dizzy with weakness and fatigue and had an episode of vomiting after eating. She also complained of low back pain. Patient had a near syncopal episode in her driveway and 911 was called. Per review of records it was recorded she was
hypotensive upon EMS arrival. On arrival to emergency department she was noted to have JONNY with creatinine of 1.2. Patient was given IV fluids with some improvement of blood pressure. Hemoglobin noted to be 9.2 now trending downward now requiring
transfusion. Hugh was placed on hold. Troponin was negative x 2. She was in sinus rhythm on ECG. Nursing has noted dark stools since she has been here.
At time of this evaluation pt sitting in bed. She reports feeling better. Denies chest pain, SOB, dizziness or palpitations.
Her sister and son are at bedside.
PMH:
Paroxysmal atrial fibrillation/flutter
s/p successful ARAMIS/CV 11/07/23
chronic HFpEF
CKD, stage 2
TIA 2009 with dysarthria
Paroxysmal A-fib
Status post PVI ablation 2010 at [facility]
Status post PVI ablation 09/21/2016
[employer]tr[employer] Linq, reached [facility].
Hyperlipidemia
Hypertension
Breast cancer status post lumpectomy x 2
Hypertension
Lung cancer s/p right upper lobe lobectomy 2017
Cognitive impairment
Past Medical History
Past Medical History: Other (See HPI)
Past Surgical History: Cardiac (Cardiac ablation x 2, s/p CV 11/07/23) and Other (Right upper lobe lung resection Right breast cancer lumpectomy)
Social History
Tobacco: Former Smoker
Alcohol: Daily (wine)
Drug: None
Personal:
Family History
Family History: Cancer and Other (stroke)
Allergies / Home Medications
Allergy/AdvReac Type Severity Reaction Status Date / Time
amoxicillin [Amoxicillin] Allergy headaches Verified 11/05/23 11:46
codeine [Codeine] Allergy BP Verified 11/05/23 20:50
decreased
�Medication �Instructions �Recorded �Confirmed �Type
cholecalciferol (vitamin D3) 25 3,000 unit PO DAILY Supplement 09/26/16 11/08/23 History
mcg (1,000 unit) capsule (Vitamin
D3)
omeprazole 20 mg tablet,delayed 20 mg PO DAILY Gastrointestinal 11/05/23 11/08/23 History
release Issue
rosuvastatin 5 mg tablet 5 mg PO DAILY High Cholesterol 11/05/23 11/08/23 History
apixaban 5 mg tablet (Eliquis) 5 mg PO BID Blood clot 11/07/23 11/08/23 Rx
prevention/tx #60 tabs
furosemide 20 mg tablet (Lasix) 20 mg PO DAILY PRN weight gain #30 11/07/23 11/08/23 Rx
tabs
metoprolol succinate 25 mg 25 mg PO BID Arrhythmia #60 tabs 11/07/23 11/08/23 Rx
tablet,extended release 24 hr
(Toprol XL)
Review of Systems
-
History Source: Patient
All other systems: Negative unless noted
Physical Exam
Vital Signs
Temp Pulse Resp BP Pulse Ox
98.5 F 66 21 102/64 96
11/09/23 07:25 11/09/23 06:40 11/09/23 06:40 11/09/23 06:40 11/09/23 06:40
GEN: No distress, awake, Ox3; sitting in chair getting blood
HEENT: supple, anicteric, mmm
LUNGS: CTA, no wheezes/rales
CV: Reg, S1/S2, no murmur, rub or gallop
ABD: soft, BS+, NT/ND
EXT: No edema, clubbing or cyanosis
NEURO: Gross non-focal
SKIN: No rash
Lab Results
11/09/23 05:12
Troponin I 0.017 ng/ml D 11/09/23 05:12
Impression / Plan
-
PCP: Dr. Madera
Hands Parter: Dr. Jesus Del Rio
Impression:
Presented 11/08/2023 with weakness, near syncope, vomiting
Hypotension
JONNY
Anemia, acute
Paroxysmal atrial fibrillation/flutter
s/p successful ARAMIS/CV 11/07/23
chronic HFpEF
CKD, stage 2
TIA 2009 with dysarthria
Paroxysmal A-fib
Status post PVI ablation 2010 at [facility]
Status post PVI ablation 09/21/2016
Medtronic Linq, reached [facility].
Hyperlipidemia
Hypertension
Breast cancer status post lumpectomy x 2
Hypertension
Lung cancer s/p right upper lobe lobectomy 2017
Cognitive impairment
Echo 09/13/2016: EF 65 to 70%, hyperdynamic systolic function. Stage II diastolic dysfunction.
Echo 11/06/23: EF 60-65%, normal wall motion, mild conc LVH, normal RV size and function, no MR
Plan:
-Presents 11/08/2023 with weakness, hypotension, near syncope with an episode of vomiting.
-JONNY with creatinine of 1.2 improved with IV fluid to 1.0 overnight
-Noted to have hypotension on arrival. After reviewing blood pressures prior to discharge on 11/07/2023 patient's blood pressure was also noted to be low at that time. Toprol was increased to 25 mg twice a day secondary to atrial flutter during
recent mission which may be contributing to low blood pressure. Toprol now on hold
-Anemia with slowly declining hemoglobin. Was 12.9 on 11/07/23, 9.2 in ED 11/07 and now 8.3. Eliquis on hold. CT of abdomen and pelvis performed due to concern of low back pain. There is no evidence of retroperitoneal or intraperitoneal hemorrhage
or acute GI bleeding.
-Noted to have dark stool by nursing. Concern for UGI with history of daily ETOH use. GI consultation with likely EGD.
-Patient undergoing transfusion with 1 unit packed RBCs 11/09/2023. Continue to monitor and trend hemoglobin. If multiple units of blood needed may need to consider IV Lasix in between.
-Paroxysmal atrial fibrillation/flutter with recent cardioversion 11/07/2023. Patient is maintaining sinus rhythm. Unfortunately due to slowly declining hemoglobin Eliquis on hold. Difficult situation given recent cardioversion. We continue to
monitor closely on telemetry for recurrence of arrhythmia. Ideally will need to go back on anticoagulation prior to discharge once hemoglobin stabilizes.
-Patient had mild heart failure during recent admission and received IV Lasix. She was not sent home on Lasix. She appears to be euvolemic after IV fluid resuscitation. Watch volume status with blood.
Plan discussed with Dr. Fuentes, patients sister and son at bedside
HPI 11/09/2023:
Patient is a 83 yo woman with PMH of HFpEF, atrial fibrillation/flutter s/p cardiac ablation x 2, breast CA s/p lumpectomy, lung cancer s/p lobectomy, HTN, HLD who was recently admitted 11/04-11/06 for acute heart failure exacerbation likely due to new
onset paroxysmal atrial flutter s/p cardioversion on 11/06 and started on Eliquis and Toprol doubled to 25 mg BID who presented to the ED 11/08/2023 with near syncope. Patient reports following discharge she 'just was not feeling well' and admitted to
feeling dizzy with weakness and fatigue and had an episode of vomiting after eating. She also complained of low back pain. Patient had a near syncopal episode in her driveway and 911 was called. Per review of records it was recorded she was
hypotensive upon EMS arrival. On arrival to emergency department she was noted to have JONNY with creatinine of 1.2. Patient was given IV fluids with some improvement of blood pressure. Hemoglobin noted to be 9.2 now trending downward now requiring
transfusion. Eliquis was placed on hold. Troponin was negative x 2. She was in sinus rhythm on ECG. Nursing has noted dark stools since she has been here.
At time of this evaluation pt sitting in bed. She reports feeling better. Denies chest pain, SOB, dizziness or palpitations.
Her sister and son are at bedside.
Data Reviewed
-
EKG: Report Reviewed by me, Discussed with Physician, Discussed with Patient and Discussed with Family
CT Scan: Report Reviewed by me, Discussed with Physician, Discussed with Patient and Discussed with Family
Labs: Labs Reviewed by me, Discussed with Physician, Discussed with Patient and Discussed with Family
Old Records: Reviewed
[2023-11-09] MEDS: CRESTOR 5 MG PO (08:13)
[2023-11-09] MEDS: PROTONIX 40 MG PO (08:13)
--- NOTE | 2023-11-09 09:00 | W.PN.UPDATE ---
Update Note
Progress Note Update
Non-billable addendum
seen this AM, resting in bed, comfortable, tolerating blood
RN reports a dark stool in toilet
CT without active hemorrhage
Assessment:
Weakness, near syncope in setting of hypotension, anemia
- monitor
Acute anemia, suspected acute blood loss
- dark stool, elevated BUN
- heme test stools
- PPI drip
- 1 unit PRBC given this morning; follow Hb
- hold Eliquis
- GI consulted
Recent Aflutter s/p Cardioversion 11/06
Hx of Afib with prior ablations
- holding Eliquis; monitor tele for reoccurrence
- challenging situation with concern for bleed/anemia
- hold Toprol due to marginal BPs
- DCA cards following
Recent acute HFpEF
- Echo: LV EF 60%, mild cLVH
- patient euvolemic, needs volume (blood, fluids)
- hold prn Lasix
JONNY on Chronic kidney disease stage II
- creatinine 1.2 with stable GFR, BUN 77; repeat levels improving
- continue to monitor
History of breast cancer
- s/p lumpectomy
History of lung cancer
- s/p lobectomy
Essential hypertension
- Metoprolol held
Hyperlipidemia
- statin continued
DVT prophylaxis: SCDs
Code: Full
--- NOTE | 2023-11-09 09:08 | VNURNOTE ---
Patient is current with [facility] only since 11/07, will monitor progress and plan at discharge.
Message from [facility] 'the sister is looking for short term rehab, sister really concerned with her being able or not able to care for herself at home
and looking for short term rehab rather than return home due to safety concerns with dementia. Her sister�s name is Cassi, and her phone number is [phone]'
[2023-11-09] MEDS: PROTONIX 100 IV ×2 (10:15→19:08)
--- NOTE | 2023-11-09 10:27 | CON.GI ---
Addendum entered and electronically signed by Naomi Solis MD 11/09/23 21:56:
I saw and examined the patient.
The AIR PUMPER or PA's note was reviewed and I agree with the note.
Comment: 83-year-old female with history of breast cancer status post lumpectomy and radiation, lung cancer status post lobectomy, TIA, atrial fibrillation status post ablation and recent cardioversion early November 2023 started on metoprolol and
Eliquis returning after discharge status post fall and weakness. Hemoglobin was noted to drop from 9.2-8.3 and prior to that it was 12.9, black stool noted as well and GI consult was called in. She does report ibuprofen use recently. History of
Guilherme esophagitis on upper endoscopy in 2021, history of daily alcohol use. Currently hemodynamically stable. Last Eliquis dose 11/08/2019 4 PM
-Melena with drop in hemoglobin on Eliquis, elevated BUN
Rule out esophagitis, gastric/duodenal ulcer disease, AVM versus other
Continue Protonix drip
Monitor H&H and transfuse if needed.
Will need upper endoscopy, earliest can be done 11/11/2023 after Eliquis washout
Will follow
Original Note:
Consultation
-
Date/Time Consultation Requested: 11/09/23 0900
Date/Time Consultation Performed: 11/09/23 1020
Requesting Provider: Ryann Fuentes MD
Performing Provider: BALDO Blanco
Reason for Consultation: symptomatic anemia
Medical History
Chief Complaint / HPI
History of Present Illness:
Pt is a 83yo with hx breast CA with lumpectomy/radiation, lung CA with prior lobectomy, CHF, TIA, HTN, colon polyp and afib with prior ablation and recent admission 11/04-11/06 with cardioversion increased dose of metoprolol and start of Eliquis .
She now returned 11/07 with fall/ weakness. Pt hbg 12.9 on 11/06 then drop to 9.2 with further drop to 8.3 after admission. BUN 28-77. Pt had larger stool prior to admission without looking at stool and brown/dark brown stool 11/08 per nursing staff.
Pt admits to vomiting pizza she has eaten. She admits to some hx Ibuprofen use in past several times per week but took Tylenol prior to admission. She admit to GERD and upset stomach but no chronic issue. She was constipated on discharge but not
a usual problem and had large stool prior to admission.
NO hx dysphagia, diarrhea or red blood in stools. 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
prior colonoscopy recalls as normal. + ETOH 3-4 drinks wine daily for years. 11/09/23 CT Abd/pelvis Angio on admission No evidence of retroperitoneal or intraperitoneal hemorrhage. No evidence of active gastrointestinal hemorrhage.Minor
diverticulosis without acute diverticulitis.No bowel obstruction. No obstructive uropathy.
Past Medical History
Past Medical History: Arrhythmias (afib ), Cancer (breast CA with radiation, lung cA with upper lobe resection), CHF, CVA (TIA), HTN, Hypercholesterolemia, Renal Failure (CKD) and Other (colon polyps, osteopenia, hematuria, ectopic ,
guilherme)
Past Surgical History: Cardiac (linq, ablation), Gynecological (lumpectomy) and Other (lung resection)
Social History
Tobacco: Non-Smoker
Alcohol: Daily (3-4 wine daily )
Drug: None
Living: Alone
Employment: Retired
Family History
Family History: Other (mother with colon CA, grandmother with colon CA?)
Allergies / Home Medications
Allergy/AdvReac Type Severity Reaction Status Date / Time
amoxicillin [Amoxicillin] Allergy headaches Verified 11/05/23 11:46
codeine [Codeine] Allergy BP Verified 11/05/23 20:50
decreased
�Medication �Instructions �Recorded
cholecalciferol (vitamin D3) 25 3,000 unit PO DAILY Supplement 09/26/16
mcg (1,000 unit) capsule (Vitamin
D3)
omeprazole 20 mg tablet,delayed 20 mg PO DAILY Gastrointestinal 11/05/23
release Issue
rosuvastatin 5 mg tablet 5 mg PO DAILY High Cholesterol 11/05/23
apixaban 5 mg tablet (Eliquis) 5 mg PO BID Blood clot 11/07/23
prevention/tx #60 tabs
furosemide 20 mg tablet (Lasix) 20 mg PO DAILY PRN weight gain #30 11/07/23
tabs
metoprolol succinate 25 mg 25 mg PO BID Arrhythmia #60 tabs 11/07/23
tablet,extended release 24 hr
(Toprol XL)
Review of Systems
-
History Source: Patient and Family
Constitutional: Reports Other (decreased appetite last few days )
EENT: Reports No Symptoms
Respiratory: Reports Trouble Breathing
Abdomen/GI: Reports Abdominal Pain, Nausea, Vomiting and Other (dark brown stool this am -- pt did not look at prior stool)
: Reports No Symptoms
Musculoskeletal: Reports Joint Pain
Skin: Reports No Symptoms
Neurological: Reports Dizzy and Weakness
Hematologic/Lymphatic: Reports Bleeding
Vital Signs
Temp Pulse Resp BP Pulse Ox
98.5 F 65 18 92/61 96
11/09/23 09:12 11/09/23 09:12 11/09/23 09:12 11/09/23 09:12 11/09/23 06:40
Physical Exam
Exam
General: Well Developed and Well Nourished
HEENT: Normocephalic
Respiratory: Clear
Cardiac: Regular Rhythm
GI: Soft, Non Tender and Non Distended
Rectal: Other (pt declined )
Musculoskeletal: No Clubbing and No Cyanosis
Skin: Warm and Dry
Neuro: Awake, Alert and Other (forgetful to questions )
Psych: Calm
Results
WBC 7.6 10^3/uL (4.8-10.8) 11/09/23 05:12
Hgb 8.3 g/dL (12.0-16.0) L 11/09/23 05:12
Hct 24.7 % (37.0-47.0) L 11/09/23 05:12
MCV 97.6 fL (81.0-99.0) 11/09/23 05:12
Plt Count 185 10^3/uL (130-400) 11/09/23 05:12
Absolute Neuts (auto) 4.3 10^3/uL (1.4-6.5) 11/08/23 22:03
Sodium 134 mmol/L (135-145) L 11/09/23 05:12
Potassium 4.2 mmol/L (3.5-5.1) 11/09/23 05:12
Chloride 105 mmol/L (98-107) 11/09/23 05:12
Carbon Dioxide 21 mmol/L (22-30) L 11/09/23 05:12
BUN 69 mg/dl (7-17) H 11/09/23 05:12
Creatinine 1.0 mg/dL (0.6-1.0) 11/09/23 05:12
Calcium 8.8 mg/dl (8.4-10.2) 11/09/23 05:12
Total Bilirubin 0.3 mg/dl (0.2-1.3) 11/08/23 22:03
AST 29 U/L (14-36) 11/08/23 22:03
ALT 15 U/L (0-35) 11/08/23 22:03
Alkaline Phosphatase 59 U/L (38-126) 11/08/23 22:03
Diagnostic Image Results:
11/09/23 CT Abd/pelvis Angio W/wo Iv
No evidence of retroperitoneal or intraperitoneal hemorrhage. No evidence of active gastrointestinal hemorrhage.
Minor diverticulosis without acute diverticulitis.
No bowel obstruction. No obstructive uropathy.
Cholelithiasis.
Prior GI Procedures:
EGD: 02/2022 [facility]- normal esophagus, 1 cm HH, normal stomach, duodenum bx neg eosinophilic esophagitis
Colonoscopy: prior colonoscopy recalls as normal.
Assessment / Plan
-
Pt is a 83yo with hx breast CA with lumpectomy/radiation, lung CA with prior lobectomy, CHF, TIA, HTN, colon polyp and afib with prior ablation and recent admission 11/04-11/06 with cardioversion increased dose of metoprolol and start of Eliquis .
She now returned 11/07 with fall/ weakness. Pt hbg 12.9 on 11/06 then drop to 9.2 with further drop to 8.3 after admission. BUN 28-77. Pt had larger stool prior to admission without looking at stool and brown/dark brown stool 11/08 per nursing staff.
Pt admits to vomiting pizza she has eaten. She admits to some hx Ibuprofen use in past several times per week but took Tylenol prior to admission. She admit to GERD and upset stomach but no chronic issue. She was constipated on discharge but not
a usual problem and had large stool prior to admission. + ETOH 3-4 drinks wine daily for years
02/2022 [facility]- EGD normal esophagus, 1 cm HH, normal stomach, duodenum bx neg eosinophilic esophagitis.
12/2021 [facility] EGD change c/w eosinophilic esophagitis- ringed esophagus congestion + guilherme
prior colonoscopy recalls as normal.- no report reviewed
11/09/23 CT Abd/pelvis Angio on admission No evidence of retroperitoneal or intraperitoneal hemorrhage. No evidence of active gastrointestinal hemorrhage.Minor diverticulosis without acute diverticulitis.No bowel obstruction. No obstructive uropathy.
-symptomatic anemia
-afib with recent cardioversion and start of Eliquis
-decreased appetite
-occasional NSAID use
-HH noted on prior EGD
-hx guilherme and ringed esophagus noted 2021
other med problems:
-breast CA with prior lumpectomy, radiation
-lung CA with lobectomy
-CHF
-prior ablation
-TIA
-HTN
-CKD
-colon polyp/family hx colon CA
-cognitive impairment
PLAN:
etiology of anemia with concern for UGI bleeding with adding new Eliquis several days ago -- related to prior change in esophagus- guilherme, radiation changes, PUD with NSAID use, davon lesion with hx HH, vs SB or lower GI source
hbg drop 12.9 to 8.3 today
add iron studies for any sign of chronic GI loss
CTA neg
curent 2 gram Na diet
cont to hold Eliquis last dose 11/07
cont PPI gtt
t/c EGD after wash out sooner if active bleeding-- if patient agreeable -- pt considering options
if neg then colon and capsule
trend hbg transfuse if needed
updated sister at bedside
-
-
Thank you for consultation and allowing me to participate in the patient's care. Please call the bond clerk GI physician during the after hours with any questions or concerns.
[2023-11-09 10:39] LABS: Folate 5.5 ng/ml (2.76-20); Vitamin B12 294 pg/ml (239-931)
[2023-11-09 11:16] LABS: Hemoglobin 8.7 g/dL (12.0-16.0)
[2023-11-09 11:42] LABS: Troponin I 0.015 ng/ml
--- NOTE | 2023-11-09 11:58 | PTCARENOTE ---
Pt awake and alert, forgetful at times. Pt with 1 person assist to bathroom x3 this morning, OOB to chair x 2hrs, tolerating well. HR SR BP stable 112/70. Pt on 3l nc, O2 sat=98%, lobes clear bilat. Pt completed 1 unit of PRBCs infusion, post
hgb=8.7. Pt had 2 BMs, black color, heme tested +. GI was consulted by Dr Ryann Fuentes. GI came to see pt, awake of heme + stool. Protonix drip started at 8 mg/hr. Pt voiding yellow urine without difficulty. Pt's son + sister to room and updated.
Call muro at pt's side. Bed alarm on pt's bed for safety.
--- NOTE | 2023-11-09 13:53 | CM ---
CM following re: discharge planning.
Reviewed pt's chart, met with pt and pt's sister Elinor at bedside.
Pt is an 83 year old female, admitted with OBS status and upgraded to inpatient status today and primary dx of Weakness. BLANCHARD letter and IMM reviewed, signed, placed on chart, pt has copies.
Pt reports she lives with 2 cats in a 2[address], has 2 sons and both shares POA: son Dean and son Lyle [phone]. Pt described herself as independent in all areas [employer], has a walker and a cane and she does not use them. Pt reports she was discharged
from a few days ago and is active with [facility]. Pt's sister Elinor is requested that pt goes to a SNF for a short term rehab. [facility] liaison confirmed that pt is active with [facility] and pt;s sister request for a short term rehab.
PT and OT evaluations noted - SNF level of care recommended.
Pt's sister made a strong request to discuss pt's discharge plan with her sons POAs. CM spoke to pt;s son Dean and he stated that he and his brother Lyle are aware that their mother will need some assistance at home or even going to an [facility]. pt's son
Dean is aware that PT/OT recommend SNF level of care and he expressed his agreement. A list of SNFs provided to pt's son. Following SNFs preferred: [facility], [facility], [facility]. A referral to above SNFs made.
PCP: Emanuel Madera
Pharmacy: [facility]
D/c plan: Preferred SNF.
CM will follow to assist pt with discharge to a preferred SNF
--- NOTE | 2023-11-09 18:47 | SUR.PHASEI ---
Pt assisted walking hallway today with monitor, and was steady on feet. Pt OOB in chair for 5 hrs, assisted back to bed now, and set up for dinner.
[2023-11-09 19:23] LABS: Hemoglobin 9.2 g/dL (12.0-16.0)
--- NOTE | 2023-11-09 20:00 | PTCARENOTE ---
Received patient at 1900. Pt. awake, alert, and oriented. Denies pain/discomfort at this time. Heart rhythm sinus. Blood pressure normotensive. Pt. currently on room air. Lungs sound diminished. PO diet ordered. Pt. has excellent appetite.
Ambulating to bathroom. Voiding without issue. Skin as documented. Discussed plan of care with patient. Vital signs stable at this time.
[2023-11-10] VITALS (8 sets, daily range): BP systolic 88–119; BP diastolic 55–75; BMI 25.4
[2023-11-10 04:13] LABS: Hematocrit 30.6 % (37.0-47.0); Hemoglobin 10.5 g/dL (12.0-16.0); Mean Corp Hgb Conc. 34.3 g/dL (33.0-37.0); Mean Corpuscular Hgb 31.9 pg (27.0-31.0); Mean Platelet Volume 9.6 fL (7.4-10.4); Platelet Count 185 10^3/uL (130-400); Red Blood Cell Count 3.29 10^6/uL (4.20-5.40); Red Cell Dist. Width 14.8 % (11.5-14.5); White Blood Cell Count 5.7 10^3/uL (4.8-10.8)
[2023-11-10 05:05] LABS: Blood Urea Nitrogen 42 mg/dl (7-17); Calcium 9.9 mg/dl (8.4-10.2); Carbon Dioxide 23 mmol/L (22-30); Chloride 107 mmol/L (98-107); Estimated Creatinine Clearance 40 ml/min; Glucose 103 mg/dl (70-99); Potassium 4.6 mmol/L (3.5-5.1); Sodium 140 mmol/L (135-145); eGFR 49.55
[2023-11-10] MEDS: PROTONIX IV (07:47)
--- NOTE | 2023-11-10 08:00 | PTCARENOTE ---
Received pt from previous shift. Assessment performed, see flowsheets. Pt AAOx4 and lying comfortably in bed with no complaints. NSR with 1st degree heart block on heart monitor. SaO2 98% on RA. Lungs diminished on auscultation. Pt able to ambulate
in room independently, just needs assistance disconnecting and connecting monitor cables. L forearm #20 PIV with protonix gtt infusing. Will continue to monitor.
[2023-11-10] MEDS: NSS (PRESERVATIVE FREE) 10 ML IV ×2 (08:34→20:21)
[2023-11-10] MEDS: CRESTOR 5 MG PO (08:34)
[2023-11-10] MEDS: PROTONIX IV 40 MG IV ×2 (08:34→20:21)
--- NOTE | 2023-11-10 10:28 | W.PN.HOSP.TC ---
Today's Communication/Plan
-
EGD tomorrow; NPO p MN
Assessment / Plan
Assessment / Plan
Assessment:
Weakness, near syncope in setting of hypotension, anemia
- monitor
- PT/OT
Acute anemia, suspected acute blood loss
- s/p 1 unit PRBC with good response to Hb 10.3. CTM.
- dark stool, elevated BUN
- heme test stools
- continue PPI drip
- GI consulted; EGD 11/10 after Eliquis washout. Patient now agreeable.
Recent Aflutter s/p Cardioversion 11/06
Hx of Afib with prior ablations
- holding Eliquis; monitor tele for reoccurrence
- challenging situation with concern for bleed/anemia
- hold Toprol due to marginal BPs
- DCA cards following
Recent acute HFpEF
- Echo: LV EF 60%, mild cLVH
- patient euvolemic, needs volume (blood, fluids)
- hold prn Lasix
JONNY on Chronic kidney disease stage II
- creatinine 1.1 with stable GFR, BUN 77; repeat level 42
- continue to monitor
History of breast cancer
- s/p lumpectomy
History of lung cancer
- s/p lobectomy
Essential hypertension
- Metoprolol held
Hyperlipidemia
- statin continued
DVT prophylaxis: SCDs
Code: Full
Anticipated Discharge: > 48 hours
Subjective/Interval History
-
Date of Service: November 10, 2023
Hb stable 10.5
she is now agreeable to EGD
Objective Data
-
Labs:
Laboratory Results
11/09/23 11/10/23
23:10 03:59
WBC 5.7
Hgb 9.0 L 10.5 L
Hct 30.6 L
Plt Count 185
Sodium 140
Potassium 4.6
Chloride 107
Carbon Dioxide 23
BUN 42 H
Creatinine 1.1 H
Glucose 103 H
Calcium 9.9
Vital Signs:
Vital Signs
Temp Pulse Resp BP Pulse Ox
98.3 F 79 18 90/61 99
11/10/23 07:00 11/10/23 09:00 11/10/23 09:00 11/10/23 06:04 11/10/23 08:00
I&O
11/09/23 11/10/23 11/11/23
06:59 06:59 06:59
Intake Total 0 / 0 794 / 804
Output Total 1750 / 1750
Balance 0 / 0 -956 / -946
Physical Exam
-
General: No Apparent Distress
HEENT: Normocephalic and Atraumatic
Respiratory: Negative Wheezes
Cardiac: Regular Rhythm and S1/S2
GI: Soft
Musculoskeletal: No Edema
Neuro: AO x 3
Psych: Calm
Data Reviewed
-
Total Time Spent with Patient (in minutes): 41
Labs: Labs Reviewed by me
[2023-11-10] MEDS: NSS 1000 IV (11:35)
--- NOTE | 2023-11-10 14:54 | W.PN.CARDCBS ---
Today's Communication / Plan
-
Hold Eliquis given transfusion dependent anemia and plan for EGD tomorrow and resume when safe from GI standpoint
Impression / Plan
-
PCP: Dr. Madera
Active Directory Administrator: Dr. Jesus Del Rio
Impression:
Presented 11/08/2023 with weakness, near syncope, vomiting
Hypotension
JONNY
Anemia, acute
Paroxysmal atrial fibrillation/flutter
s/p successful ARAMIS/CV 11/07/23
chronic HFpEF
CKD, stage 2
TIA 2009 with dysarthria
Paroxysmal A-fib
Status post PVI ablation 2010 at [facility]
Status post PVI ablation 09/21/2016
[employer] Linq, reached [facility].
Hyperlipidemia
Hypertension
Breast cancer status post lumpectomy x 2
Hypertension
Lung cancer s/p right upper lobe lobectomy 2017
Cognitive impairment
Echo 09/13/2016: EF 65 to 70%, hyperdynamic systolic function. Stage II diastolic dysfunction.
Echo 11/06/23: EF 60-65%, normal wall motion, mild conc LVH, normal RV size and function, no MR
Plan:
-Presents 11/08/2023 with weakness, hypotension, near syncope with an episode of vomiting found to be anemic requiring pRBC transfusion
-Eliquis on hold for transfusion dependent anemia
-GI w/up ongoing, tentatively planned for EGD 11/10
-Will resume Eliquis when safe from GI standpoint, reviewed with patient she is at increased risk of CVA of AC given recent DCCV
-Toprol on hold for hypotension
-Patient had mild heart failure during recent admission and received IV Lasix. She was not sent home on Lasix. She appears to be euvolemic after IV fluid resuscitation. Watch volume status with blood.
HPI 11/09/2023:
Patient is a 83 yo woman with PMH of HFpEF, atrial fibrillation/flutter s/p cardiac ablation x 2, breast CA s/p lumpectomy, lung cancer s/p lobectomy, HTN, HLD who was recently admitted 11/04-11/06 for acute heart failure exacerbation likely due to new
onset paroxysmal atrial flutter s/p cardioversion on 11/06 and started on Eliquis and Toprol doubled to 25 mg BID who presented to the ED 11/08/2023 with near syncope. Patient reports following discharge she 'just was not feeling well' and admitted to
feeling dizzy with weakness and fatigue and had an episode of vomiting after eating. She also complained of low back pain. Patient had a near syncopal episode in her driveway and 911 was called. Per review of records it was recorded she was
hypotensive upon EMS arrival. On arrival to emergency department she was noted to have JONNY with creatinine of 1.2. Patient was given IV fluids with some improvement of blood pressure. Hemoglobin noted to be 9.2 now trending downward now requiring
transfusion. Eliquis was placed on hold. Troponin was negative x 2. She was in sinus rhythm on ECG. Nursing has noted dark stools since she has been here.
At time of this evaluation pt sitting in bed. She reports feeling better. Denies chest pain, SOB, dizziness or palpitations.
Her sister and son are at bedside.
Progress Note - Active Directory Administrator
Subjective
Date of Service: November 10, 2023
No acute overnight events. Resting comfortably out of bed to chair eating breakfast this morning. Hemoglobin uptrending following blood transfusion.
Objective
Labs:
11/10/23 03:59
11/10/23 03:59
Labs
Hgb 10.5 g/dL (12.0-16.0) L 11/10/23 03:59
Hct 30.6 % (37.0-47.0) L 11/10/23 03:59
Plt Count 185 10^3/uL (130-400) 11/10/23 03:59
Sodium 140 mmol/L (135-145) 11/10/23 03:59
Potassium 4.6 mmol/L (3.5-5.1) 11/10/23 03:59
BUN 42 mg/dl (7-17) H 11/10/23 03:59
Creatinine 1.1 mg/dL (0.6-1.0) H 11/10/23 03:59
Glucose 103 mg/dl (70-99) H 11/10/23 03:59
Troponins
11/08/23 11/09/23 11/09/23
23:16 05:12 11:06
Troponin I 0.013 0.017 D 0.015
Vital Signs and I&O:
Vital Signs
Temp Pulse Resp BP Pulse Ox
98.4 F 68 18 106/64 98
11/10/23 11:17 11/10/23 13:30 11/10/23 13:30 11/10/23 11:39 11/10/23 11:00
Vital Signs
Temp Pulse Resp BP Pulse Ox
98.4 F 68 18 106/64 98
11/10/23 11:17 11/10/23 13:30 11/10/23 13:30 11/10/23 11:39 11/10/23 11:00
Intake & Output
11/08/23 11/09/23 11/10/23 11/11/23
06:59 06:59 06:59 06:59
Intake Total 0 / 0 794 / 804 140 / 140
Output Total 1750 / 1750
Balance 0 / 0 -956 / -946 140 / 140
Physical Exam
Physical Exam
Gen: NAD, AA
HEENT: NC/AT, sclera anicteric
Neck: No JVD
CV: RRR, NL s1/s2
Lungs: CTAB
Abd: S/ND
Ext: No LE edema
Skin: Warm, dry
Neuro: Non-focal
--- NOTE | 2023-11-10 20:22 | W.PN.GI.CBS2 ---
Today's Communication / Plan
-
PLAN:
-Melena with drop in hemoglobin on Eliquis, elevated BUN
Rule out esophagitis, gastric/duodenal ulcer disease, AVM versus other
Continue Protonix drip
Monitor H&H and transfuse if needed.
Discussed with patient regarding upper endoscopy, initially she refused to have the endoscopy but as per Dr. Fuentes, patient is now agreeable and I also discussed with her son.
Plan for upper endoscopy 11/11/2023 after Eliquis washout
Will follow
Assessment / Plan
-
Pt is a 83yo with hx breast CA with lumpectomy/radiation, lung CA with prior lobectomy, CHF, TIA, HTN, colon polyp and afib with prior ablation and recent admission 11/04-11/06 with cardioversion increased dose of metoprolol and start of Eliquis .
She now returned 11/07 with fall/ weakness. Pt hbg 12.9 on 11/06 then drop to 9.2 with further drop to 8.3 after admission. BUN 28-77. Pt had larger stool prior to admission without looking at stool and brown/dark brown stool 11/08 per nursing staff.
Pt admits to vomiting pizza she has eaten. She admits to some hx Ibuprofen use in past several times per week but took Tylenol prior to admission. She admit to GERD and upset stomach but no chronic issue. She was constipated on discharge but not
a usual problem and had large stool prior to admission. + ETOH 3-4 drinks wine daily for years
02/2022 [facility]- EGD normal esophagus, 1 cm HH, normal stomach, duodenum bx neg eosinophilic esophagitis.
12/2021 [facility] EGD change c/w eosinophilic esophagitis- ringed esophagus congestion + guilherme
prior colonoscopy recalls as normal.- no report reviewed
11/09/23 CT Abd/pelvis Angio on admission No evidence of retroperitoneal or intraperitoneal hemorrhage. No evidence of active gastrointestinal hemorrhage.Minor diverticulosis without acute diverticulitis.No bowel obstruction. No obstructive uropathy.
-symptomatic anemia
-afib with recent cardioversion and start of Eliquis
-decreased appetite
-occasional NSAID use
-HH noted on prior EGD
-hx guilherme and ringed esophagus noted 2021
other med problems:
-breast CA with prior lumpectomy, radiation
-lung CA with lobectomy
-CHF
-prior ablation
-TIA
-HTN
-CKD
-colon polyp/family hx colon CA
-cognitive impairment
PLAN:
-Melena with drop in hemoglobin on Eliquis, elevated BUN
Rule out esophagitis, gastric/duodenal ulcer disease, AVM versus other
Continue Protonix drip
Monitor H&H and transfuse if needed.
Discussed with patient regarding upper endoscopy, initially she refused to have the endoscopy but as per Dr. Fuentes, patient is now agreeable and I also discussed with her son.
Plan for upper endoscopy 11/11/2023 after Eliquis washout
Will follow
Subjective
Subjective
Date of Service: November 10, 2023
Patient without any complaints. No further bloody bowel movements
Objective
Data Reviewed
Laboratory Data:
Laboratory Results
11/10/23 03:59
11/10/23 03:59
Laboratory Results
Magnesium 2.1 mg/dl (1.6-2.3) 11/09/23 05:12
Total Bilirubin 0.3 mg/dl (0.2-1.3) 11/08/23 22:03
AST 29 U/L (14-36) 11/08/23 22:03
ALT 15 U/L (0-35) 11/08/23 22:03
Alkaline Phosphatase 59 U/L (38-126) 11/08/23 22:03
Vital Signs and I&O:
Vital Signs
Temp Pulse Resp BP Pulse Ox
98.3 F 70 12 104/75 100
11/10/23 15:13 11/10/23 16:00 11/10/23 16:00 11/10/23 16:00 11/10/23 16:00
I&O
11/09/23 11/10/23 11/11/23
06:59 06:59 06:59
Intake Total 0 / 0 794 / 804 440 / 440
Output Total 1750 / 1750
Balance 0 / 0 -956 / -946 440 / 440
Physical Exam
Physical Exam
GI: Soft, Non Distended and Non Tender
[2023-11-11] VITALS (18 sets, daily range): BP systolic 95–126; BP diastolic 62–83; BMI 25.5
[2023-11-11] MEDS: TYLENOL 650 MG PO ×2 (00:27→21:21)
[2023-11-11] MEDS: NSS 1000 IV (04:39)
[2023-11-11 05:09] LABS: Hematocrit 23.4 % (37.0-47.0); Mean Corp Hgb Conc. 34.2 g/dL (33.0-37.0); Mean Corpuscular Hgb 31.5 pg (27.0-31.0); Mean Corpuscular Volume 92.1 fL (81.0-99.0); Mean Platelet Volume 9.6 fL (7.4-10.4); Platelet Count 179 10^3/uL (130-400); Red Blood Cell Count 2.54 10^6/uL (4.20-5.40); Red Cell Dist. Width 14.3 % (11.5-14.5); White Blood Cell Count 6.5 10^3/uL (4.8-10.8)
[2023-11-11 06:11] LABS: Blood Urea Nitrogen 27 mg/dl (7-17); Calcium 9.2 mg/dl (8.4-10.2); Carbon Dioxide 22 mmol/L (22-30); Chloride 109 mmol/L (98-107); Estimated Creatinine Clearance 55 ml/min; Glucose 100 mg/dl (70-99); Potassium 4.6 mmol/L (3.5-5.1); Sodium 137 mmol/L (135-145); eGFR > 60.00
[2023-11-11] MEDS: NSS (PRESERVATIVE FREE) 10 ML IV ×2 (08:02→19:17)
[2023-11-11] MEDS: CRESTOR 5 MG PO (08:02)
[2023-11-11] MEDS: PROTONIX IV 40 MG IV ×2 (08:03→19:17)
--- NOTE | 2023-11-11 08:42 | PTCARENOTE ---
recd pt tele level of care, ambulated to bathroom, gait steady, no c/o. occas forgetful. resting in bed. awaiting procedure today, pt aware. no GI distress, no overt signs of bleeding. IV fluids infusing as ordered.
--- NOTE | 2023-11-11 08:47 | W.PN.HOSP.TC ---
Today's Communication/Plan
-
1 unit PRBC and EGD today
cap IVF
Assessment / Plan
Assessment / Plan
Assessment:
Weakness, near syncope in setting of hypotension, anemia
- monitor
- PT/OT - SNF recommended, can discuss closer to DC
Acute anemia, suspected acute blood loss
- dark stool, elevated BUN
- s/p 1 unit PRBC with good response to Hb 10.5. repeat Hb this AM 8.0. 1 further unit ordered.
- continue PPI drip
- GI consulted; EGD today after Eliquis washout
Recent Aflutter s/p Cardioversion 11/06
Hx of Afib with prior ablations
- holding Eliquis; monitor tele for reoccurrence
- challenging situation with concern for bleed/anemia
- hold Toprol due to marginal BPs
- DCA cards following
Recent acute HFpEF
- Echo: LV EF 60%, mild cLVH
- patient euvolemic, needs volume (blood, fluids)
- hold prn Lasix
JONNY on Chronic kidney disease stage II
- creatinine 1.1 with stable GFR, BUN 77; repeat level 27
- continue to monitor
History of breast cancer
- s/p lumpectomy
History of lung cancer
- s/p lobectomy
Essential hypertension
- Metoprolol held
Hyperlipidemia
- statin continued
DVT prophylaxis: SCDs
Code: Full
Anticipated Discharge: 24 - 48 hours
Subjective/Interval History
-
Date of Service: November 11, 2023
denies any new complaints at present
Hb 8.0 from 10.5
Objective Data
-
Labs:
Laboratory Results
11/11/23
04:48
WBC 6.5
Hgb 8.0 L D
Hct 23.4 L
Plt Count 179
Sodium 137
Potassium 4.6
Chloride 109 H
Carbon Dioxide 22
BUN 27 H
Creatinine 0.8
Glucose 100 H
Calcium 9.2
Vital Signs:
Vital Signs
Temp Pulse Resp BP Pulse Ox
98.4 F 82 16 103/78 98
11/11/23 08:01 11/11/23 08:06 11/11/23 08:06 11/11/23 08:06 11/10/23 20:00
I&O
11/10/23 11/11/23 11/12/23
06:59 06:59 06:59
Intake Total 794 / 804 1100 / 1100 180 / 180
Output Total 1750 / 1750
Balance -956 / -946 1100 / 1100 180 / 180
Physical Exam
-
General: No Apparent Distress
HEENT: Normocephalic and Atraumatic
Respiratory: Negative Wheezes
Cardiac: Regular Rhythm and S1/S2
GI: Soft
Genito-urinary: No Costovertebral Tender
Neuro: AO x 3
Hematologic / Lymphatic: No Lymphadenopathy
Psych: Calm
Data Reviewed
-
Total Time Spent with Patient (in minutes): 44
Labs: Labs Reviewed by me
--- NOTE | 2023-11-11 10:20 | PTCARENOTE ---
seen by Dr. Solis, awaiting procedure. Bed assigned. Blood running, tolerating, resting.
--- NOTE | 2023-11-11 10:49 | PTCARENOTE ---
IV site for blood puffy, removed, new start 22P by CR placed. IV team notified for additional site for EGD. Report to next RN, still awaiting youth nutritional monitor to GI lab.
--- NOTE | 2023-11-11 11:17 | PTCARENOTE ---
transport to GI lab room 6, blood infusing, handoff to GI lab staff. new IV sites, 22P, 20P both Left arm.
--- NOTE | 2023-11-11 13:40 | PTCARENOTE ---
Arrived from GI lab to floor AAOx3. Blood transfusion completed in GI lab, pink form sent to blood bank. No complaints at this time, oriented to room. Call muro within reach.
--- NOTE | 2023-11-11 14:53 | CM ---
Patient seen bedside with son, Lyle, discussed referrals made to SNF. Patient concerned about cat at home, Lyle encouraged patient to go to rehab as he will care for cat. Patients top choice [facility], will follow up on bed availability at
facilities. CM will continue to follow for discharge planning needs.
Plan; SNF pending accepting facility.
[2023-11-11] MEDS: ANESTHETIC LOZENGE 1 LOZENGE PO (21:57)
[2023-11-12 00:27] VITALS: BP 111/65
[2023-11-12 03:22] VITALS: BP 93/53
[2023-11-12 06:00] VITALS: BMI 25.5
[2023-11-12 06:31] LABS: Hematocrit 27.1 % (37.0-47.0); Hemoglobin 8.9 g/dL (12.0-16.0); Mean Corp Hgb Conc. 32.8 g/dL (33.0-37.0); Mean Corpuscular Hgb 31.3 pg (27.0-31.0); Mean Corpuscular Volume 95.4 fL (81.0-99.0); Mean Platelet Volume 9.7 fL (7.4-10.4); Platelet Count 188 10^3/uL (130-400); Red Blood Cell Count 2.84 10^6/uL (4.20-5.40); Red Cell Dist. Width 14.4 % (11.5-14.5); White Blood Cell Count 5.6 10^3/uL (4.8-10.8)
[2023-11-12 06:48] LABS: Blood Urea Nitrogen 18 mg/dl (7-17); Carbon Dioxide 24 mmol/L (22-30); Chloride 108 mmol/L (98-107); Estimated Creatinine Clearance 49 ml/min; Glucose 87 mg/dl (70-99); Potassium 4.5 mmol/L (3.5-5.1); Sodium 139 mmol/L (135-145); eGFR > 60.00
[2023-11-12 07:50] VITALS: BP 98/67
[2023-11-12] MEDS: PROTONIX IV 40 MG IV (08:49)
[2023-11-12] MEDS: CRESTOR 5 MG PO (08:49)
[2023-11-12] MEDS: NSS (PRESERVATIVE FREE) 10 ML IV (08:49)
--- NOTE | 2023-11-12 09:55 | W.PN.HOSP.TC ---
Today's Communication/Plan
-
Advance diet
Discharge
Assessment / Plan
Assessment / Plan
Gen-AAOx3, NAD
HEENT-NC, AT, anicteric, clear oral mm
Neck-supple
CV-reg, no M, +S1/S2
Lungs-clear B/L
Abd-soft, NT, ND
Ext-no edema
Musculoskeletal-no cyanosis, clubbing
Skin-warm and dry
Neuro-grossly non-focal
Psych-calm, cooperative
Weakness, near syncope in setting of hypotension, anemia
- monitor
- PT/OT - SNF recommended
Acute anemia, suspected acute blood loss. EGD completed, showing esophagitis. Recommend Protonix twice daily for 8 weeks then once daily per GI. Patient states she had a colonoscopy in the past and was told that she no longer needs it. Recommend
outpatient follow-up with GI.
- dark stool, elevated BUN
- s/p 2 unit PRBC transfusion, hemoglobin 8.9 this morning. Advance diet to solid food today.
Vitamin B12 deficiency -start oral repletion. Discussed with patient.
Recent Aflutter s/p Cardioversion 11/06
Hx of Afib with prior ablations. GI recommends resuming Eliquis today.
Recent acute HFpEF
- Echo: LV EF 60%, mild cLVH
- patient euvolemic, needs volume (blood, fluids)
- hold prn Lasix
JONNY on Chronic kidney disease stage II. JONNY resolved.
History of breast cancer
- s/p lumpectomy
History of lung cancer
- s/p lobectomy
Essential hypertension
- Metoprolol to resume.
Hyperlipidemia
- statin continued
DVT prophylaxis: SCDs
Code: Full
Dispo -medically stable for discharge to SNF today. Discussed with case management.
32 minutes spent in discharge process.
Anticipated Discharge: Today
Subjective/Interval History
-
Date of Service: November 12, 2023
Patient seen and examined. No complaints.
Objective Data
-
Labs:
Laboratory Results
11/12/23
04:47
WBC 5.6
Hgb 8.9 L
Hct 27.1 L
Plt Count 188
Sodium 139
Potassium 4.5
Chloride 108 H
Carbon Dioxide 24
BUN 18 H
Creatinine 0.9
Glucose 87
Calcium 9.0
Vital Signs:
Vital Signs
Temp Pulse Resp BP Pulse Ox
97.9 F 65 18 98/67 99
11/12/23 07:50 11/12/23 07:50 11/12/23 07:50 11/12/23 07:50 11/12/23 07:50
I&O
11/11/23 11/12/23 11/13/23
06:59 06:59 06:59
Intake Total 1100 / 1100 1560 / 1560 480 / 480
Balance 1100 / 1100 1560 / 1560 480 / 480
Review of Systems
-
History Source: Patient
All other systems: Reviewed and negative
--- NOTE | 2023-11-12 10:00 | W.DS.TRANS ---
DC Summary - [employer]
-
Discharge Instructions:
Sleep Apnea Risk Intermediate
Discharge Diagnosis/Procedures Acute blood loss anemia, esophagitis
Diet Low Fat,Low Cholesterol
Activity As tolerated
Driving Restrictions As prior to admission
Bathing Restrictions None
Blood Work CBC in 1 week with your primary care doctor
Instructions:
Stand-Alone Forms:
Changes to Home Medications: No
Discharge Medications:
DC Medications w/original date entered in [facility]
cholecalciferol (vitamin D3) 25 mcg (1,000 unit) capsule (Vitamin D3) 3,000 unit PO DAILY Supplement 09/26/16
rosuvastatin 5 mg tablet 5 mg PO DAILY High Cholesterol 11/05/23
apixaban 5 mg tablet (Eliquis) 5 mg PO BID Blood clot prevention/tx #60 tabs 11/07/23
furosemide 20 mg tablet (Lasix) 20 mg PO DAILY PRN weight gain #30 tabs 11/07/23
metoprolol succinate 25 mg tablet,extended release 24 hr (Toprol XL) 25 mg PO BID Arrhythmia #60 tabs 11/07/23
cyanocobalamin (vitamin B-12) 1,000 mcg tablet 1,000 mcg PO DAILY #0 tabs 11/12/23
pantoprazole 40 mg tablet,delayed release 40 mg PO BID #0 tabs 11/12/23
Home Medication Changes
Pending Results: No
--- NOTE | 2023-11-12 10:07 | CM ---
Addendum entered by Halima Jha 11/12/23 12:12:
Patient seen bedside with sonDIOGO reviewed, signed, placed in chart.
[facility]
Report: [phone]

Original Note:
CM spoke with [facility], able to accept patient for short term rehab today. CM confirmed with Hospitalist, patient clear for discharge today. CM placed call to patients sonLyle, will provide transportation to SNF. [facility] updated.
CM will continue to follow for discharge planning needs.
Plan; [facility], son to provide transportation after lunch time.
[facility]
Report: [phone]
[2023-11-12 10:11] VITALS: BP 120/78
[2023-11-12] MEDS: ELIQUIS 5 MG PO (11:03)
[2023-11-12] MEDS: VITAMIN B-12 1000 MCG PO (11:03)
[2023-11-12 11:47] VITALS: BP 111/65
--- NOTE | 2023-11-12 12:21 | PTCARENOTE ---
[facility] twice at [phone] with no answer.
--- NOTE | 2023-11-12 12:38 | PTCARENOTE ---
Called Karen foster for a third time to give report on a pt going to rehab and no answer again.
--- NOTE | 2023-11-12 13:16 | PTCARENOTE ---
Called for a forth time to Karen foster for report. Called with no answer to [phone]
== END 2023-11-12 14:12 | DRG 369 ==
LOC: 4 EAST ACU 02:06
PROVIDERS: Clinical Nurse Specialist Family Health; Internal Medicine; ADMITTING PHYSICIAN Student in an Organized Health Care Education/Training Program; ATTENDING PHYSICIAN Hospitalist; CONSULT PHYSICIAN Internal Medicine Gastroenterology; EMERGENCY PHYSICIAN Emergency Medicine; FAMILY PHYSICIAN Specialist; OTHER PHYSICIAN Internal Medicine Cardiovascular Disease
PROC: 30233N1 Transfusion of Nonautologous Red Blood Cells into Peripheral Vein, Percutaneous Approach (ICD-10-PCS; 2023-11-09)
PROC: 0DB28ZX Excision of Middle Esophagus, Via Natural or Artificial Opening Endoscopic, Diagnostic (ICD-10-PCS; 2023-11-11)
DX: K20.91 Esophagitis, unspecified with bleeding (principal); D62 Acute posthemorrhagic anemia; I50.32 Chronic diastolic (congestive) heart failure; I13.0 Hypertensive heart and chronic kidney disease with heart failure and stage 1 through stage 4 chronic kidney disease, or unspecified chronic kidney disease; R47.01 Aphasia; I48.92 Unspecified atrial flutter; N17.9 Acute kidney failure, unspecified; K92.1 Melena; R55 Syncope and collapse; M54.50 Low back pain, unspecified; E78.00 Pure hypercholesterolemia, unspecified; N18.2 Chronic kidney disease, stage 2 (mild); E86.0 Dehydration; K21.9 Gastro-esophageal reflux disease without esophagitis; J44.9 Chronic obstructive pulmonary disease, unspecified; E53.8 Deficiency of other specified B group vitamins; F10.90 Alcohol use, unspecified, uncomplicated; R41.89 Other symptoms and signs involving cognitive functions and awareness; I95.9 Hypotension, unspecified; M85.80 Other specified disorders of bone density and structure, unspecified site; K44.9 Diaphragmatic hernia without obstruction or gangrene; K22.89 Other specified disease of esophagus; I48.0 Paroxysmal atrial fibrillation; M19.90 Unspecified osteoarthritis, unspecified site; Z85.118 Personal history of other malignant neoplasm of bronchus and lung; Z85.3 Personal history of malignant neoplasm of breast; Z87.891 Personal history of nicotine dependence; Z88.5 Allergy status to narcotic agent; Z88.0 Allergy status to penicillin; Z79.01 Long term (current) use of anticoagulants; Z86.73 Personal history of transient ischemic attack (TIA), and cerebral infarction without residual deficits; Z90.2 Acquired absence of lung [part of]; Z92.3 Personal history of irradiation; Z87.19 Personal history of other diseases of the digestive system; Z87.11 Personal history of peptic ulcer disease; Z80.0 Family history of malignant neoplasm of digestive organs
CPT/HCPCS: 88305; 88312; 70450; 71046; 74174; 80048; 80053; 82607; 82728; 82746; 83540; 83550; 83735; 84484; 85018; 85025; 85027; 86850; 86900; 86901; 86920; 93005; 96360; 96361; 97116; 97162; 97166; 99285; P9016; Q9967

== ENCOUNTER → 2024-03-03 06:25 | Day surgery (SDC) | payer MEDICARE, BC, SELFPAY | LOC: GI 06:25 | PROVIDERS: ATTENDING PHYSICIAN Internal Medicine Gastroenterology | DX: D12.2 Benign neoplasm of ascending colon (principal); D12.3 Benign neoplasm of transverse colon; K57.30 Diverticulosis of large intestine without perforation or abscess without bleeding; K64.0 First degree hemorrhoids; K92.1 Melena; D50.0 Iron deficiency anemia secondary to blood loss (chronic); Z79.01 Long term (current) use of anticoagulants | CPT/HCPCS: 45385; 45380; 88305 ==

== ENCOUNTER 2024-04-14 07:58 | Day surgery (SDC) | payer MEDICARE, BC, SELFPAY ==
[2024-04-14 08:17] VITALS: BMI 26.0
[2024-04-14 08:50] VITALS: BP 120/81
[2024-04-14 10:21] VITALS: BP 115/66
[2024-04-14 10:35] VITALS: BP 119/73
[2024-04-14 10:51] VITALS: BP 118/68
[2024-04-14 11:05] VITALS: BP 123/79
--- NOTE | 2024-04-14 11:47 | ITS.CL.IMPLP ---
Mid Level Provider - Implant Loop
Implant Loop
Procedure Report:
LINQ IMPLANTED MONITOR REMOVAL
Date of Procedure: April 14, 2024
Primary Care Provider: Dr. Emanuel Hernandez
PROCEDURES:
1. Removal of implanted loop recorder
INDICATION FOR PROCEDURE:
1. Loop Recorder at end of battery longevity
After informed consent was obtained,'time out' was called and confirmed, the patient was prepped and draped in a sterile fashion.
SEDATION: Via the anesthesia department with conscious sedation
Lidocaine with epi was used for local anesthesia. An incision was made along the prior incision and the Linq monitor was carefully dissected from the pocket. The pocket was liberally irrigated with antibiotic solution. The pocket was closed in
the typical fashion.
COMPLICATIONS:
None
CONCLUSIONS:
1. Removal of implanted loop recorder.
RECOMMENDATIONS:
-Office wound check in 7-14 days.
Copy to: Dr. Emanuel Hernandez
== END 2024-04-14 11:25 | disposition home or self-care (01) ==
LOC: CATH 07:58
PROVIDERS: ATTENDING PHYSICIAN Internal Medicine Cardiovascular Disease; FAMILY PHYSICIAN Family Medicine
DX: Z09 Encounter for follow-up examination after completed treatment for conditions other than malignant neoplasm (principal); Z86.73 Personal history of transient ischemic attack (TIA), and cerebral infarction without residual deficits; I48.91 Unspecified atrial fibrillation; I13.0 Hypertensive heart and chronic kidney disease with heart failure and stage 1 through stage 4 chronic kidney disease, or unspecified chronic kidney disease; N18.2 Chronic kidney disease, stage 2 (mild); I50.32 Chronic diastolic (congestive) heart failure; E78.00 Pure hypercholesterolemia, unspecified; K21.9 Gastro-esophageal reflux disease without esophagitis; Z87.891 Personal history of nicotine dependence; Z85.3 Personal history of malignant neoplasm of breast; Z85.118 Personal history of other malignant neoplasm of bronchus and lung; Z79.01 Long term (current) use of anticoagulants
CPT/HCPCS: 33286

== ENCOUNTER → 2024-05-23 09:02 | Outpatient (REF) | payer MEDICARE, BC, SELFPAY | LOC: WDC 09:02 | PROVIDERS: ATTENDING PHYSICIAN Family Medicine | DX: N64.52 Nipple discharge (principal) | CPT/HCPCS: 76642; 77062; 77066 ==

== ENCOUNTER → 2024-07-08 12:02 | Outpatient (REF) | payer MEDICARE, BC, SELFPAY | LOC: CLAB 12:02 | PROVIDERS: ATTENDING PHYSICIAN Surgery | DX: N64.52 Nipple discharge (principal) | CPT/HCPCS: 88305; 88341; 88342; 88360 ==

== ENCOUNTER 2024-07-13 13:19 | Emergency (ER) | payer MEDICARE, BC, SELFPAY ==
[2024-07-13] VITALS (11 sets, daily range): BP systolic 110–138; BP diastolic 72–110; BMI 26.1
[2024-07-13 13:43] LABS: % Basophils 0.7 % (0-2); % Eosinophils 0.8 % (0-6); % Immature Granulocytes 0.2 % (0-0.5); % Lymphocytes 20.9 % (20.5-51.1); % Monocytes 8.4 % (1.7-9.3); Absolute Eosinophils 0.1 10^3/uL (0-0.7); Absolute Lymphocytes 1.3 10^3/uL (1.2-3.4); Absolute Monocytes 0.5 10^3/uL (0.1-0.6); Absolute Neutrophils 4.2 10^3/uL (1.4-6.5); Hematocrit 37.3 % (37.0-47.0); Hemoglobin 12.5 g/dL (12.0-16.0); Mean Corp Hgb Conc. 33.5 g/dL (33.0-37.0); Mean Corpuscular Hgb 32.2 pg (27.0-31.0); Mean Corpuscular Volume 96.1 fL (81.0-99.0); Mean Platelet Volume 9.1 fL (7.4-10.4); Nucleated Red Blood Cells % 0 %; Platelet Count 235 10^3/uL (130-400); Red Blood Cell Count 3.88 10^6/uL (4.20-5.40); Red Cell Dist. Width 12.9 % (11.5-14.5); White Blood Cell Count 6.1 10^3/uL (4.8-10.8)
[2024-07-13 14:06] LABS: INR 1.12; PT 14.7 Sec (11.4-14.6)
[2024-07-13 14:07] LABS: ALT (SGPT) 18 U/L (0-35); AST (SGOT) 39 U/L (14-36); Albumin 4.2 g/dl (3.5-5.0); Alkaline Phosphatase 74 U/L (38-126); Blood Urea Nitrogen 28 mg/dl (7-17); Calcium 9.3 mg/dl (8.4-10.2); Carbon Dioxide 26 mmol/L (22-30); Chloride 104 mmol/L (98-107); Glucose 106 mg/dl (70-99); Potassium 4.6 mmol/L (3.5-5.1); Sodium 138 mmol/L (135-145); Total Bilirubin 0.7 mg/dl (0.2-1.3); Total Protein 7.7 g/dl (6.3-8.2); eGFR 44.64
[2024-07-13 14:19] LABS: Troponin I < 0.012 ng/ml
--- NOTE | 2024-07-13 16:12 | ED.GENMED ---
History of Present Illness
General
Chief Complaint: Cardiac Symptoms
Source: patient and family (Son)
Exam Limitations: none
Time Seen by Provider: 07/13/24 15:59
Nursing documentation reviewed up to this point in time: agreed with
History of Present Illness
History of Present Illness:
83-year-old female with a past medical history of hypertension, hyperlipidemia, atrial fibrillation on Eliquis who presents to the emergency department for evaluation of shortness of breath. Patient reports symptoms started yesterday morning and
they have been constant since that time. She reports shortness of breath mainly with light exertion�she says she becomes winded after about 10 steps. She denies any associated cough. She denies any associated chest pain. She has not had any
recent fever, chills, URI symptoms. She denies any swelling or pain in the legs. She says that she felt similarly about a year ago when she was in atrial fibrillation. Follows with Dr. Grzegorz Del Rio for cardiology. Her son does note that she
had recent biopsy of a breast mass to evaluate for cancer.
Past History
Past History
ED Past Medical History: Arrthythmia (PAF ), Cancer (Breast CA, Lung CA), COPD, CVA (With aphasia), HTN, Hypercholesterolemia, Other and Other (History of hepatitis while in college, arthritis, cataracts, anemia, )
ED Past Surgical History: Cardiac (Ablation, Cardioversion ), Gynecological (2 ectopic pregnancies) and Other (Right lumpectomy and diagnoses breast cancer, polypectomy, Upper right lobe lung removed)
Social History
Tobacco: Former smoker
Alcohol: Daily (Wine 1-3)
Personal:
Living: with family
Employment: Retired
Family History
Family History: Negative Early CAD
Review of Systems
Review of Systems
All Other Systems: ROS reviewed and negative except as documented in HPI and ROS
Constitutional: Denies fever or chills
EENT: Denies sore throat or runny nose
Respiratory: Reports trouble breathing; Denies cough
Cardiac: Denies chest pain or palpitations
ABD/GI: Denies abdominal pain, nausea or vomiting
: Denies flank pain
Musculoskeletal: Denies edema, neck pain or back pain
Neurological: Denies dizzy or headache
Phy Exam
Physical Exam
Physical Exam:
General: Awake, alert, oriented x3; no acute distress
Head: Normocephalic, atraumatic
Eyes: Conjunctiva normal, sclera anicteric
Throat: Airway intact, handling secretions
Neck: Trachea midline, no JVD
Lungs: Clear to auscultation bilaterally, no wheezing, rales, rhonchi
Heart: Tachycardia with regular rhythm, no murmurs, gallops, or rubs appreciated
Abd: Soft, non distended, nontender
Neuro: No gross deficits
Skin: no rash
Extremities: No edema in extremities, equal pulses in all extremities
Scores
Heart Failure Risk
Heart Failure Risk Score: Not Applicable
Heart Score for Chest Pain Patients
STEMI patient?: Not applicable
Withdrawal Assessment of Alcohol
Withdrawal Assessment Completed?: Not applicable
Course
Orders/Labs/Results
Orders:
Orders
07/13/24 13:20
Electrocardiogram (*1) Urgent
Reason for Study: Palpitations
EKG- Treatment ONCE
07/13/24 13:28
CR Chest - 2 Views Urgent
Comment:
Reason For Exam: SOB
07/13/24 13:35
Complete Blood Count/With Diff Urgent
Comprehensive Metabolic Panel Urgent
Prothrombin Time Urgent
Troponin I Urgent
07/13/24 16:00
Electrocardiogram (*1) Urgent
Reason for Study: Bradycardia / Tachycardia
EKG- Treatment ONCE
07/13/24 16:11
CT Chest PE Study Urgent
Comment:
Reason For Exam: dyspnea, tachycardia
0.9% Sodium Chloride 500 ml [Nss] 500 ml IV BOLUS
07/13/24 18:14
Troponin I Urgent
07/13/24 19:41
Metoprolol [Lopressor] 5 mg IV NOW STA
07/13/24 20:20
Diltiazem HCl [Cardizem] 10 mg IV NOW STA
07/13/24 20:29
Apixaban [Eliquis] 5 mg PO ONCE ONE
Metoprolol Xl [Toprol Xl] 25 mg PO NOW STA
07/13/24 20:53
Electrocardiogram (*1) Urgent
EKG- Treatment ONCE
Abnormal Lab Results
07/13/24
13:35
RBC 3.88 L 10^6/uL
(4.20-5.40)
MCH 32.2 H pg
(27.0-31.0)
PT 14.7 H Sec
(11.4-14.6)
BUN 28 H mg/dl
(7-17)
Creatinine 1.2 H mg/dL
(0.6-1.0)
Glucose 106 H mg/dl
(70-99)
AST 39 H U/L
(14-36)
07/13/24 13:35
07/13/24 13:35
Vital Signs
Initial and Last Documented VS:
Initial Vital Signs
Temp Pulse Resp BP Pulse Ox
36.5 C 110 17 135/81 99
07/13/24 13:22 07/13/24 13:22 07/13/24 13:22 07/13/24 13:22 07/13/24 13:22
Last Documented Vital Signs
Temp Pulse Resp BP Pulse Ox
36.6 C 109 18 112/97 97
07/13/24 16:00 07/13/24 20:44 07/13/24 19:15 07/13/24 20:44 07/13/24 19:15
MDM/Problems Addressed
Differential Diagnosis Includes:
Dysrhythmia, anemia, anginal equivalent, CHF, pneumonia, PE
MDM/Problems Addressed:
83-year-old female presents for evaluation of shortness of breath�she says the symptoms seem similar to when she was in A-fib previously. She is notably tachycardic but otherwise normal vitals including normal respiratory rate and normal pulse ox
on room air. Her EKG in triage appears to show sinus tachycardia with heart rate 110. Physical exam is as above. She had lab work sent in triage including a CBC and MP that she has mild renal insufficiency with a creatinine of 1.2 but no other
clinically significant abnormalities. Initial troponin is undetectable�will repeat. She had a chest x-ray which showed no acute disease. With persistent resting tachycardia and increased shortness of breath, known cancer history and current
cancer workup underway I do think it would be reasonable to check a CTA to rule out pulmonary embolism. Will provide IV fluids. Will reassess after the above.
CTA negative for PE or any other acute pathology. EKG appears to be sinus tachycardia�P waves present could be sinus tach or an atrial tach. Her heart rate remains elevated at 110 on clinical reassessment. Case discussed with cardiology to review
EKG and provide recommendations.
Discussed with cardiology�they agree likely atrial tachycardia. Will treat with some Lopressor and reassess.
After 5 mg IV Lopressor heart rate unchanged. Will trial some Cardizem and reassess. Will also provide nighttime meds (Toprol and Eliquis).
After Cardizem heart rate now in the 70s EKG shows sinus rhythm. She is feeling much better, was able to get up and ambulate without any issues. I think she is stable for discharge at this point in time suspected she had atrial tachycardia that
broke with rate control. She will follow-up with cardiology as an outpatient. She feels very comfortable with this plan. All questions answered.
Chronic conditions affecting care:
Atrial fibrillation
*Radiology
Radiology exam reviewed: preliminary read by ED provider and radiology read reviewed
*Pulse Oximetry
Patient hypoxic: no
*EKG
Interpreted by ED Provider?: Yes
Heart Rate: 111
Rate: tachycardiac
Rhythm: sinus
[place]: left axis deviation
Interval: first degree heart block
QRS Pattern: normal QRS
Ischemia: non-specific ST changes
*Critical Care Note
Total Time (30-74mins, 75-104mins- exclusive of procedures): Not Applicable
Data Reviewed
Review of Other/Old Records Reveals: Labs and Records
Source: patient, records and family
ED Attending Note
-
Portions of this chart may have been created with voice recognition software.� Occasional wrong word or��sound alike� substitutions may have occurred due to the inherent limitations of voice recognition software.
Discharge Plan
Departure
Patient Disposition: Home (Routine Discharge)
Date of Disposition: 07/13/24
Time of Disposition: 21:18
Patient with high blood pressure during this ER visit?: No
Discharge Problem:
Atrial tachycardia, Dyspnea
Instructions: Overview of heart arrhythmias, Chest Pain DCA Follow Up
Prescriptions:
No Action
rosuvastatin 5 mg Tablet
5 mg PO DAILY
Eliquis 5 mg Tablet
5 mg PO BID Qty: 60 0RF
metoprolol succinate [Toprol XL] 25 mg tablet extended release 24 hr
25 mg PO BID Qty: 60 11RF
furosemide [Lasix] 20 mg tablet
20 mg PO DAILY PRN (Reason: weight gain) Qty: 30 3RF
cholecalciferol (vitamin D3) [Vitamin D3] 50 mcg (2,000 unit) Capsule
2,000 unit PO DAILY
Vitamin B-12 50 mcg Tablet
50 mcg PO DAILY
pantoprazole 40 mg tablet,delayed release (DR/EC)
40 mg PO DAILY
Referrals:
Emanuel Madera MD [Family Provider] -
Jesus Del Rio MD [Active] - Call in 1-3 days for appt
Activity Restrictions/Additional Instructions:
Thank you for visiting the Emergency Department at [facility].
1. Please schedule a follow up appointment as directed. Call first thing tomorrow morning to make an appointment.
2. If indicated, please take your medications as instructed and indicated on discharge paperwork.
3. If any of your symptoms do not improve, or persist, or become more severe within 6-12 hours, please return to the emergency department for further care.
4. Please return to the emergency department if you develop a headache, neck pain/stiffness, fever greater than 100.4F, chest pain, shortness of breath, persistent nausea, vomiting, slurred speech, difficulty walking, numbness/tingling, weakness,
signs of infection or any other symptoms that are worrisome to you.
Please call [phone] if you have any questions.
Interventions
Interventions:
*Risk Screen - Suicide Last Done: 07/13/24 13:23
*General Assessment Last Done: 07/13/24 13:23
*Neglect/Abuse Screening Last Done: 07/13/24 13:23
ED- Fall Risk Assessment Last Done: 07/13/24 15:54
*ED COVID-19 Vaccine History Last Done: 07/13/24 13:23
ED- Pulmonary Assessment Last Done: 07/13/24 15:54
ED- Cardiac Assessment Last Done: 07/13/24 15:54
Discharge Date and Time
Print Language: KOSOVAN
[2024-07-13] MEDS: NSS 500 IV (16:15)
[2024-07-13 18:51] LABS: Troponin I < 0.012 ng/ml
[2024-07-13] MEDS: LOPRESSOR 5 MG IV (19:44)
[2024-07-13] MEDS: CARDIZEM 10 MG IV (20:44)
[2024-07-13] MEDS: ELIQUIS 5 MG PO (20:44)
[2024-07-13] MEDS: TOPROL XL 25 MG PO (20:44)
== END 2024-07-13 21:30 | disposition home or self-care (01) ==
LOC: EMR 13:19
PROVIDERS: Emergency Medicine; EMERGENCY PHYSICIAN Emergency Medicine; FAMILY PHYSICIAN Family Medicine
DX: I47.19 Other supraventricular tachycardia (principal); R06.00 Dyspnea, unspecified; I10 Essential (primary) hypertension; E78.00 Pure hypercholesterolemia, unspecified; I48.91 Unspecified atrial fibrillation; I48.0 Paroxysmal atrial fibrillation; J44.9 Chronic obstructive pulmonary disease, unspecified; Z79.01 Long term (current) use of anticoagulants; Z85.118 Personal history of other malignant neoplasm of bronchus and lung; Z85.3 Personal history of malignant neoplasm of breast; Z86.73 Personal history of transient ischemic attack (TIA), and cerebral infarction without residual deficits; Z87.891 Personal history of nicotine dependence
CPT/HCPCS: 99284; 96374; 96375; 96361; 71046; 71275; 80053; 84484; 85025; 85610; 93005; Q9967

== ENCOUNTER 2024-07-18 09:20 | Emergency (ER) | payer MEDICARE, BC, SELFPAY ==
[2024-07-18] VITALS (28 sets, daily range): BP systolic 63–129; BP diastolic 45–94
--- NOTE | 2024-07-18 09:42 | ED.GENMED ---
History of Present Illness
General
Chief Complaint: Cardiac Symptoms
Source: patient
Exam Limitations: none
Time Seen by Provider: 07/18/24 09:22
Nursing documentation reviewed up to this point in time: agreed with
History of Present Illness
History of Present Illness:
83-year-old female presents with palpitations history of the same PAF on Eliquis took her metoprolol and Eliquis this morning, has had some chest pain and shortness of breath since yesterday she sees Dr. Del Rio no fevers no vomiting EMS was
called he called me requesting an order for diltiazem and of not giving it to her as her heart rate decreased after some saline
Past History
Past History
ED Past Medical History: Arrthythmia (PAF ), Cancer (Breast CA, Lung CA), COPD, CVA (With aphasia), HTN, Hypercholesterolemia, Other and Other (History of hepatitis while in college, arthritis, cataracts, anemia, )
ED Past Surgical History: Cardiac (Ablation, Cardioversion ), Gynecological (2 ectopic pregnancies) and Other (Right lumpectomy and diagnoses breast cancer, polypectomy, Upper right lobe lung removed)
Social History
Tobacco: Former smoker
Alcohol: Daily (Wine 1-3)
Personal:
Living: with family
Employment: Retired
Family History
Family History: Negative Early CAD
Phy Exam
Physical Exam
Physical Exam:
Physical Exam
General: no apparent distress, not acutely ill
Neck: No jaundice
Heart: Irregular
Lungs: no acute respiratory distress. clear bilaterally
Abdomen: Not tender
Neuro: alert and oriented. no focal neurological deficits
Skin: no rash
Psychiatric: well kept. interactive and cooperative
Extremities: no edema. no calf tenderness.
Course
Orders/Labs/Results
Orders:
Orders
07/18/24 09:37
Electrocardiogram (*1) Urgent
Reason for Study: Palpitations
EKG- Treatment ONCE
07/18/24 09:44
Complete Blood Count/With Diff Urgent
Comprehensive Metabolic Panel Urgent
Free T4 Urgent
Comment: ADD ON
Magnesium Urgent
TSH Urgent
Troponin I Urgent
07/18/24 10:05
Diltiazem HCl [Cardizem] 10 mg IV NOW STA
07/18/24 10:21
0.9% Sodium Chloride 500 ml [Nss] 500 ml IV BOLUS
07/18/24 10:36
Add On- LAB Urgent
Tests Added?: TSH
07/18/24 11:39
CARDIOLOGY CONSULT Routine
Consulting Provider: Kaden Elizabeth
Was physician already notified: Yes
07/18/24 11:45
Diltiazem 125 mg/125 ml Nss [Cardizem] 125 mg in 125 ml IV PER PROTOCOL
Initial dose in mg/hr, then titrate:: 5
Titrate to keep:: Heart rate 80-100 bpm
Titrate by mg/hr:: 5 mg/hr
Frequency of titrations (minutes):: 15
Maximum dose in mg/hr:: 15
07/18/24 13:33
Amiodarone [Cordarone] 150 mg Dextrose 5%/Water 100 ml [D5w] 100 ml IV NOW
07/18/24 13:38
Amiodarone [Cordarone] 150 mg .ROUTE .STK-MED ONE
07/18/24 13:45
Add On- LAB Routine
Tests Added?: Free T4
07/18/24 14:06
Electrocardiogram (*1) Urgent
Reason for Study: Palpitations
EKG- Treatment ONCE
07/18/24 14:33
ASA Classification Routine
Propofol [Diprivan] 100 mg IV NOW STA
07/18/24 15:01
EKG [Electrocardiogram (*1)] Urgent
Reason for Study: Other
Other Reason for Exam: Post cardio-version
07/18/24 15:02
EKG- Treatment ONCE
Abnormal Lab Results
07/18/24
09:44
RBC 3.42 L 10^6/uL
(4.20-5.40)
Hgb 10.9 L g/dL
(12.0-16.0)
Hct 32.3 L %
(37.0-47.0)
MCH 31.9 H pg
(27.0-31.0)
Absolute Lymphs (auto) 0.9 L 10^3/uL
(1.2-3.4)
Lymphocytes % 17.0 L %
(20.5-51.1)
Monocytes % 9.8 H %
(1.7-9.3)
BUN 23 H mg/dl
(7-17)
Creatinine 1.1 H mg/dL
(0.6-1.0)
Glucose 117 H mg/dl
(70-99)
TSH 4.69 H uIU/ml
(0.47-4.68)
07/18/24 09:44
07/18/24 09:44
Vital Signs
Initial and Last Documented VS:
Initial Vital Signs
Temp Pulse Resp BP Pulse Ox
98.1 F 117 12 116/83 98
07/18/24 09:36 07/18/24 09:36 07/18/24 09:36 07/18/24 09:36 07/18/24 09:36
Last Documented Vital Signs
Temp Pulse Resp BP Pulse Ox
98.4 F 55 18 101/80 98
07/18/24 14:57 07/18/24 15:07 07/18/24 15:07 07/18/24 15:07 07/18/24 15:07
Procedures
Cardioversion
Indication:: Afib
Performed by:: bubba
Energy Used: 200 joules
Number of attempts: 1
Successful?: Yes
ASA Risk Score: Class II
Any reaction or bad outcome to prior sedation/anesthesia?: No history of a reaction
Sedation level to be attained: minimal
Chart and allergies reviewed: Yes
Patient reassessed prior to sedation: Yes
Time out completed at (validating right patient & procedure): 14:58
History of difficult intubation: No
Airway free of obstruction: Yes
Patient has a gag reflex: Yes
Patient is able to open mouth: Yes
Patient has no dentures: Yes
Patient has no loose teeth: Yes
Medication administered by Provider during Moderate Sedation: IV Propofol (mg)
Total dose administered: 50
Time drug administered: 14:58
Start Time: 14:58
Stop Time: 15:08
MDM/Problems Addressed
Differential Diagnosis Includes:
A-fib PAT SVT anemia electrolyte abnormality
MDM/Problems Addressed:
Palpitation
Chronic conditions affecting care: Arrhythmia
Acute Exacerbation and/or Progression of Chronic Illness: Arrhythmia
*EKG
Interpreted by ED Provider?: Yes
Interpretation: abnormal
Comparison EKG: no comparison EKG present
Heart Rate: 118
Rate: tachycardiac
Rhythm: other
[place]: normal axis
QRS Pattern: normal QRS
Ischemia: no ischemia
*Publisher Assistant Interpretation
Rate: tachycardiac
Interpretation: abnormal
Heart Rate: 110
Rhythm: other
*Critical Care Note
Total Time (30-74mins, 75-104mins- exclusive of procedures): 33
Update Note
Update Note:
Update patient seen by cardiology Jennifer switched amiodarone looks like atrial flutter now discussed DC cardioversion versus DC to home on meds versus admission
Successful cardioversion
ED Attending Note
-
Portions of this chart may have been created with voice recognition software.� Occasional wrong word or��sound alike� substitutions may have occurred due to the inherent limitations of voice recognition software.
Discharge Plan
Departure
Patient Disposition: Home (Routine Discharge)
Date of Disposition: 07/18/24
Time of Disposition: 15:03
Patient with high blood pressure during this ER visit?: No
Condition: Good
Discharge Problem:
Atrial flutter, Paroxysmal A-fib
Instructions: Atrial fibrillation - Discharge instructions, MODERATE SEDATION ADULT
Prescriptions:
No Action
rosuvastatin 5 mg Tablet
5 mg PO DAILY
Eliquis 5 mg Tablet
5 mg PO BID Qty: 60 0RF
metoprolol succinate [Toprol XL] 25 mg tablet extended release 24 hr
25 mg PO BID Qty: 60 11RF
cholecalciferol (vitamin D3) [Vitamin D3] 50 mcg (2,000 unit) Capsule
2,000 unit PO DAILY
ibuprofen [Advil] 200 mg Tablet
400 mg PO DAILYPRN PRN (Reason: mild pain)
cyanocobalamin (vitamin B-12) 2,500 mcg Tablet
2,500 mcg PO DAILY
Referrals:
Emanuel Madera MD [Family Provider] -
Corrine James CRNP [Specified Professional Personl] - 07/31/24 3:00 pm (You have a follow up visit with Dr. Lantigua's AUTOMATIC CASTING MACHINE OPERATOR, Corrine, at the [place] office. Please call with questions. )
Activity Restrictions/Additional Instructions:
Follow-up with cardiology
Take metoprolol 25 mg 1 time a day
Start amiodarone 200 mg twice a day
Interventions
Interventions:
ED- Fall Risk Assessment Last Done: 07/18/24 10:18
*ED COVID-19 Vaccine History Last Done: 07/18/24 10:17
ED- Pulmonary Assessment Last Done: 07/18/24 10:19
ED- Cardiac Assessment Last Done: 07/18/24 10:18
Discharge Date and Time
Print Language: CAMEROONIAN
[2024-07-18 10:02] LABS: % Basophils 0.6 % (0-2); % Eosinophils 1.1 % (0-6); % Immature Granulocytes 0.4 % (0-0.5); % Monocytes 9.8 % (1.7-9.3); % Neutrophils 71.1 % (42.2-75.2); Absolute Eosinophils 0.1 10^3/uL (0-0.7); Absolute Lymphocytes 0.9 10^3/uL (1.2-3.4); Absolute Monocytes 0.5 10^3/uL (0.1-0.6); Absolute Neutrophils 3.9 10^3/uL (1.4-6.5); Hematocrit 32.3 % (37.0-47.0); Hemoglobin 10.9 g/dL (12.0-16.0); Mean Corp Hgb Conc. 33.7 g/dL (33.0-37.0); Mean Corpuscular Hgb 31.9 pg (27.0-31.0); Mean Corpuscular Volume 94.4 fL (81.0-99.0); Mean Platelet Volume 9.3 fL (7.4-10.4); Nucleated Red Blood Cells % 0 %; Platelet Count 202 10^3/uL (130-400); Red Blood Cell Count 3.42 10^6/uL (4.20-5.40); Red Cell Dist. Width 12.7 % (11.5-14.5); White Blood Cell Count 5.4 10^3/uL (4.8-10.8)
[2024-07-18 10:18] LABS: ALT (SGPT) 17 U/L (0-35); AST (SGOT) 30 U/L (14-36); Alkaline Phosphatase 72 U/L (38-126); Blood Urea Nitrogen 23 mg/dl (7-17); Calcium 8.9 mg/dl (8.4-10.2); Carbon Dioxide 23 mmol/L (22-30); Chloride 105 mmol/L (98-107); Glucose 117 mg/dl (70-99); Potassium 4.3 mmol/L (3.5-5.1); Sodium 137 mmol/L (135-145); Total Bilirubin 0.9 mg/dl (0.2-1.3); Total Protein 6.6 g/dl (6.3-8.2); eGFR 49.55
[2024-07-18 10:24] LABS: Troponin I < 0.012 ng/ml
[2024-07-18] MEDS: CARDIZEM 10 MG IV (10:24)
[2024-07-18] MEDS: NSS 500 IV (10:30)
[2024-07-18] MEDS: CARDIZEM 125 IV (11:45)
[2024-07-18 12:00] LABS: TSH 4.69 uIU/ml (0.47-4.68)
--- NOTE | 2024-07-18 13:08 | CON.CAR ---
Addendum entered and electronically signed by Kaden Elizabeth MD 07/18/24 15:28:
83-year-old woman with paroxysmal A-fib status post post PVI in 2010 and 2016, with recurrent atypical atrial flutter probably on July 13, managed initially with rate control after an ER visit. Seen in our office on July 16, and metoprolol
was increased. She presented to the emergency department today with increasing shortness of breath and persistent atypical flutter with 2-1 conduction. She is comfortable now may have missed 2 Eliquis doses over the last 30 days.
PMH: HFpEF, CKD, TIA, hypertension, hyperlipidemia, breast and lung cancer, cognitive impairment and alcohol use.
Meds, allergies, FH, SH, PSH reviewed.
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
Agree with physical findings as noted below
EKG: Atypical atrial flutter with predominant 2-1 conduction, with variable block after IV diltiazem
Impression:
Recurrent atrial flutter, atypical likely left atrial following PVI's
Plan:
Abstinence from alcohol, cardioversion, amiodarone 200 mg twice daily for 4 weeks then 200 mg daily, decrease Toprol ER to 25 mg once daily from twice daily
We will arrange for follow-up
Discussed in detail with patient and son.
Original Note:
Consultation
Consultation Request
Date/Time Consultation Requested: 07/18/2024
Date/Time Consultation Performed: 07/18/2024
Requesting Provider: Dr. Womack
Performing Provider: Raven Rojas PA-C for Dr. Elizabeth
Reason for Consultation: Afib w/ RVR
Medical History
-
History of Present Illness:
HPI: Claudine is an 83 year old female with PMH of paroxysmal atrial fibrillation/flutter s/p PVI in 2010 and 2016, chronic HFpEF, CKD, TIA, HTN, HLD, breast cancer, lung cancer, and cognitive impairment. She was recently in ER on 07/13/2024 with
palpitations and chest pressure and was found to be in atrial tachycardia. She was given 5mg IV lopressor and remained tachycardic, but then was given 10mg IV diltiazem and converted to SR. She was seen in follow up in the cardiology office
07/16/2024 and was back in atrial tachycardia. She was instructed to increase her Toprol to 25mg in AM, 50mg in PM, but she forgot to increase dose. Came [facility] today for evaluation of ongoing/recurrent chest pressure and palpitations. In rapid
atrial tachycardia on arrival by ECG, given 10mg IV diltiazem and remained tachycardic, so started on Cardizem gtt. Cardiology consulted for evaluation. She fees symptomatic improvement now that HR slowing down. BP has been on the lower side with BP
of 99/84 in ER. Labwork overall unremarkable with negative troponin x1.
PMH:
Chronic HFpEF
CKD, stage 2
TIA 2009 with dysarthria
Paroxysmal A-fib/flutter
s/p PVI ablation 2010 at [facility]
s/p PVI ablation 09/21/2016
s/p successful ARAMIS/CV 11/07/23
Medtronic Linq, removed 04/2024.
Hyperlipidemia
Hypertension
Breast cancer status post lumpectomy x 2
Lung cancer s/p right upper lobe lobectomy 2017
Recently diagnosed with Paget's disease 07/2024
Cognitive impairment
Past Medical History
Past Medical History: Other (See HPI)
Past Surgical History: Cardiac (Cardiac ablation x 2, s/p CV 11/07/23) and Other (Right upper lobe lung resection Right breast cancer lumpectomy)
Social History
Tobacco: Former Smoker
Alcohol: Daily (wine)
Drug: None
Personal:
Employment: Retired
Family History
Family History: Cancer and Other (stroke)
Allergies / Home Medications
Allergy/AdvReac Type Severity Reaction Status Date / Time
amoxicillin [Amoxicillin] Allergy headaches Verified 07/13/24 13:22
codeine [Codeine] Allergy BP Verified 07/13/24 13:22
decreased
�Medication �Instructions �Recorded �Confirmed �Type
rosuvastatin 5 mg tablet 5 mg PO DAILY High Cholesterol 11/05/23 04/14/24 History
apixaban 5 mg tablet (Eliquis) 5 mg PO BID Blood clot 11/07/23 04/14/24 Rx
prevention/tx #60 tabs
furosemide 20 mg tablet (Lasix) 20 mg PO DAILY PRN weight gain #30 11/07/23 04/14/24 Rx
tabs
metoprolol succinate 25 mg 25 mg PO BID Arrhythmia #60 tabs 11/07/23 04/14/24 Rx
tablet,extended release 24 hr
(Toprol XL)
cholecalciferol (vitamin D3) 50 2,000 unit PO DAILY 04/14/24 04/14/24 History
mcg (2,000 unit) capsule (Vitamin
D3)
cyanocobalamin (vitamin B-12) 50 50 mcg PO DAILY 04/14/24 04/14/24 History
mcg tablet (Vitamin B-12)
pantoprazole 40 mg tablet,delayed 40 mg PO DAILY 04/14/24 04/14/24 History
release
Review of Systems
-
History Source: Patient
All other systems: Negative unless noted
Physical Exam
Vital Signs
Temp Pulse Resp BP Pulse Ox
98.1 F 91 23 107/88 98
07/18/24 09:36 07/18/24 10:45 07/18/24 10:45 07/18/24 10:45 07/18/24 10:16
Lab Results
07/18/24 09:44
07/18/24 09:44
Troponin I < 0.012 ng/ml 07/18/24 09:44
Physical Exam
General: Well Developed, Well Nourished and No Apparent Distress
HEENT: Normocephalic, Anicteric and Moist Mucous Membranes
Respiratory: Clear and Non Labored Respirations
Cardiac: S1/S2 and Regular Rhythm (tachycardic)
Musculoskeletal: No Clubbing, No Cyanosis and No Edema
Skin: Warm and Dry
Neuro: AO x 3 and Nonfocal/Grossly Intact
Psych: Calm
Impression / Plan
-
PCP: Dr. Madera
It Recruiter: Dr. Grzegorz Del Rio
Impression:
Presented with palpitations, chest pressure
Rapid atrial tachycardia/flutter
Chronic HFpEF
CKD, stage 2
TIA 2009 with dysarthria
Paroxysmal A-fib/flutter
s/p PVI ablation 2010 at [facility]
s/p PVI ablation 09/21/2016
s/p successful ARAMIS/CV 11/07/23
Medtronic Linq, removed 04/2024.
Hyperlipidemia
Hypertension
Breast cancer status post lumpectomy x 2
Lung cancer s/p right upper lobe lobectomy 2017
Recently diagnosed with Paget's disease 07/2024
Cognitive impairment
Echo 09/13/2016: EF 65 to 70%, hyperdynamic systolic function. Stage II diastolic dysfunction.
Echo 11/06/2023: EF 60-65%, normal wall motion, mild conc LVH, normal RV size and function, no MR
Plan:
-Presented with palpitations and chest pressure. In rapid atrial tachycardia/flutter.
-HR improving on diltiazem gtt. Notes improvement/resolution of symptoms w/ improvement in HR.
-On Toprol 25mg BID as OP. Hypotension has limited uptitration of Toprol. Giving amiodarone bolus now.
-She had prior PVI in 2010 and 2016. Do not see h/o prior AAD therapy.
-Continues on Eliquis 5mg BID for anticoagulation.
-Troponin negative x1.
-Echo 11/2023 noted preserved EF with no significant valvular disease.
-TSH just outside normal range at 4.69. Check free T4.
-K and mag stable at 4.3 and 2.0 respectively.
HPI: Claudine is an 83 year old female with PMH of paroxysmal atrial fibrillation/flutter s/p PVI in 2010 and 2016, chronic HFpEF, CKD, TIA, HTN, HLD, breast cancer, lung cancer, and cognitive impairment. She was recently in ER on 07/13/2024 with
palpitations and chest pressure and was found to be in atrial tachycardia. She was given 5mg IV lopressor and remained tachycardic, but then was given 10mg IV diltiazem and converted to SR. She was seen in follow up in the cardiology office
07/16/2024 and was back in atrial tachycardia. She was instructed to increase her Toprol to 25mg in AM, 50mg in PM, but she forgot to increase dose. Came to [facility] today for evaluation of ongoing/recurrent chest pressure and palpitations. In rapid
atrial tachycardia on arrival by ECG, given 10mg IV diltiazem and remained tachycardic, so started on Cardizem gtt. Cardiology consulted for evaluation. She fees symptomatic improvement now that HR slowing down. BP has been on the lower side with BP
of 99/84 in ER. Labwork overall unremarkable with negative troponin x1.
Data Reviewed
-
EKG: Tracing Personally Visualized and interpreted
Labs: Labs Reviewed by me
Old Records: Reviewed
[2024-07-18] MEDS: CORDARONE 103 MG IV (13:53)
[2024-07-18 14:35] LABS: Free T4 0.99 ng/dl (0.78-2.19)
[2024-07-18] MEDS: DIPRIVAN 100 MG IV (14:56)
== END 2024-07-18 16:18 | disposition home or self-care (01) ==
LOC: EMR 09:20
PROVIDERS: CONSULT PHYSICIAN Internal Medicine Cardiovascular Disease; EMERGENCY PHYSICIAN Emergency Medicine; FAMILY PHYSICIAN Family Medicine
DX: R00.2 Palpitations (principal); E78.00 Pure hypercholesterolemia, unspecified; I13.0 Hypertensive heart and chronic kidney disease with heart failure and stage 1 through stage 4 chronic kidney disease, or unspecified chronic kidney disease; I50.32 Chronic diastolic (congestive) heart failure; N18.2 Chronic kidney disease, stage 2 (mild); J44.9 Chronic obstructive pulmonary disease, unspecified; Z79.01 Long term (current) use of anticoagulants; Z79.899 Other long term (current) drug therapy; Z82.3 Family history of stroke; Z83.49 Family history of other endocrine, nutritional and metabolic diseases; Z85.118 Personal history of other malignant neoplasm of bronchus and lung; Z85.3 Personal history of malignant neoplasm of breast; Z86.73 Personal history of transient ischemic attack (TIA), and cerebral infarction without residual deficits; Z87.891 Personal history of nicotine dependence
CPT/HCPCS: 99291; 92960; 96374; 96375; 96376; 80053; 83735; 84439; 84443; 84484; 85025; 93005

== ENCOUNTER 2024-09-19 06:47 | Day surgery (SDC) | payer MEDICARE, BC, SELFPAY ==
[2024-09-19 07:01] VITALS: BMI 24.9
[2024-09-19] MEDS: LOVENOX 40 MG SC (07:03)
[2024-09-19] MEDS: VANCOCIN 200 IV (07:03)
[2024-09-19] MEDS: TYLENOL 1000 MG PO (07:04)
[2024-09-19] MEDS: NORMOSOL-R/PLASMALYTE-A 1000 IV (07:05)
[2024-09-19 07:07] VITALS: BP 126/69; BMI 24.9
--- NOTE | 2024-09-19 07:15 | W.PN.UPDATE ---
Update Note
Progress Note Update
Pt seen and examined. Marked and ready for surgery
--- NOTE | 2024-09-19 08:21 | W.IMMPOSTOP ---
Surgical Immed Post Op Note
-
Primary Surgeon: Julian
Assisting Surgeon: None
Pre-op Diagnosis: Paget's Disease of the left breast
Post-op Diagnosis: Paget's Disease of the left breast
Procedure Performed: Left lumpectomy
Anesthesia Type: TIVA
Specimen / Cultures: Left lumpectomy
Estimated Blood Loss: 10cc
Complications: None
Operative Findings: None
--- NOTE | 2024-09-19 08:22 | OR.RPT ---
Operative Report
Operative Report
Date of Procedure: 09/19/23
Surgeon: Julian
Pre-Op DX: Paget's Disease of the left breast
Post-Op DX: Paget's Disease of the left breast
Procedure: Left lumpectomy
The patient is an 84-year-old female who presented with skin excoriation on her left nipple associated with bleeding and discomfort. She underwent biopsy and this showed Paget's disease of the left breast. After consultation with her family and
taking into consideration all of her comorbidities she was cleared for surgery and presents for left lumpectomy.
On the day of surgery the patient presented to same-day surgical services and was prepped. She verified site and procedure as did her son who is power of rotary driller prospecting.
She was taken to the operating room and in the supine position intravenous sedation was delivered. The left breast was prepped and draped in the usual sterile fashion and all tissues were anesthetized with 1% lidocaine plain. The nipple complex
was excised by making a elliptical shaped incision encircling it. Dissection was carried down into the breast parenchyma using the electrocautery. The dissection was carried in all dimensions to soft fatty tissue. Time out of body was noted and
the specimen was oriented for the pathologist and sent for permanent examination.
Marcaine 0.5% plain was instilled into all tissues and the wound was closed in multiple layers using simple interrupted 3-0 Vicryl on deep, intermediate, and subcutaneous tissue. Skin was closed with a running subcuticular 4-0 Vicryl. Surgical
glue and a sterile compressive dressing were applied. All sponge needle and instrument counts were correct and the patient was transferred to the recovery room in stable condition.
()
[2024-09-19 08:34] VITALS: BP 96/59
[2024-09-19 08:45] VITALS: BP 95/59
[2024-09-19 09:00] VITALS: BP 112/66
[2024-09-19 09:11] VITALS: BP 112/62
[2024-09-19 09:15] VITALS: BP 113/63
== END 2024-09-19 10:00 | disposition home or self-care (01) ==
LOC: SDS 06:47
PROVIDERS: ATTENDING PHYSICIAN Surgery
DX: C50.012 Malignant neoplasm of nipple and areola, left female breast (principal)
CPT/HCPCS: 19301; 88307; A4648

== ENCOUNTER → 2024-10-13 09:57 | Outpatient (REF) | payer MEDICARE, BC, SELFPAY ==
[2024-10-13 11:03] LABS: % Basophils 0.8 % (0-2); % Eosinophils 2.5 % (0-6); % Immature Granulocytes 0.4 % (0-0.5); % Monocytes 9.4 % (1.7-9.3); % Neutrophils 63.9 % (42.2-75.2); Absolute Eosinophils 0.1 10^3/uL (0-0.7); Absolute Lymphocytes 1.1 10^3/uL (1.2-3.4); Absolute Monocytes 0.5 10^3/uL (0.1-0.6); Absolute Neutrophils 3.1 10^3/uL (1.4-6.5); Hematocrit 34.5 % (37.0-47.0); Hemoglobin 11.5 g/dL (12.0-16.0); Mean Corp Hgb Conc. 33.3 g/dL (33.0-37.0); Mean Corpuscular Volume 96.1 fL (81.0-99.0); Mean Platelet Volume 9.3 fL (7.4-10.4); Nucleated Red Blood Cells % 0 %; Platelet Count 242 10^3/uL (130-400); Red Blood Cell Count 3.59 10^6/uL (4.20-5.40); Red Cell Dist. Width 13.2 % (11.5-14.5); White Blood Cell Count 4.8 10^3/uL (4.8-10.8)
[2024-10-13 11:15] LABS: INR 1.02; PT 13.7 Sec (11.4-14.6)
[2024-10-13 11:46] LABS: ALT (SGPT) 14 U/L (0-35); AST (SGOT) 29 U/L (14-36); Albumin 4.1 g/dl (3.5-5.0); Alkaline Phosphatase 75 U/L (38-126); Blood Urea Nitrogen 32 mg/dl (7-17); Calcium 9.2 mg/dl (8.4-10.2); Carbon Dioxide 29 mmol/L (22-30); Chloride 102 mmol/L (98-107); Glucose 89 mg/dl (70-99); Potassium 4.1 mmol/L (3.5-5.1); Sodium 140 mmol/L (135-145); Total Bilirubin 0.5 mg/dl (0.2-1.3); Total Protein 7.2 g/dl (6.3-8.2)
== END ==
LOC: SDSPAT 09:57
PROVIDERS: ATTENDING PHYSICIAN Internal Medicine Cardiovascular Disease; FAMILY PHYSICIAN Family Medicine
DX: I48.0 Paroxysmal atrial fibrillation (principal)
CPT/HCPCS: 80053; 83735; 85025; 85610; 86850; 86900; 86901; 93005

== ENCOUNTER 2024-10-20 06:09 | Day surgery (SDC) | payer MEDICARE, BC, SELFPAY ==
[2024-10-13 10:37] VITALS: BMI 27.0
--- NOTE | 2024-10-13 11:53 | HPS.HSE ---
Family Physician
-
Family Physician: NO INTERVIEW UNKNOWN
Chief Complaint
-
Paroxysmal atrial fibrillation.
History of Present Illness
The patient is an 84 year old female presenting today for paroxysmal atrial fibrillation. The patient reports symptoms such as exertional shortness of breath and fatigue likely secondary to this diagnosis. She previously underwent 2
ablations in 2010 and 2016 for her arrhythmia. Subsequently, an implanted LINQ monitor showed no recurrent arrhythmias for several years. Anticoagulation was, at one point, discontinued. By November 2023, her arrhythmia had returned with rapid
ventricular rates and acute heart failure. She would undergo a ARAMIS-guided cardioversion at that time. She did present to the ER in July of this year with significant shortness of breath. Her labs were relatively stable and a chest x-ray showed
no acute disease. Her EKG was consistent with atrial tachycardia. She was given Lopressor and Cardizem which broke her atrial tachycardia. As of today, she is on current pharmacological therapy with Toprol XL. She reports compliance with Eliquis for
oral anticoagulation. She notes that her symptoms associated with her atrial arrhythmias greatly interfere with her activities of daily living and overall impact her quality of life. She is interested in pursuing pulmonary vein isolation for more
definitive arrhythmia management. She denies any current complaints today such as chest pain, shortness of breath at rest, nausea, vomiting, diarrhea, lightheadedness, dizziness, cough, sore throat, or fever.
Medical History
Past Medical History
Past Medical History: Reports Other
Additional Past Medical History:
1. Paroxysmal atrial fibrillation, status post ablation x2, 2010 and 2016, and ARAMIS-guided cardioversion 11/2023; pharmacological therapy with Toprol XL and oral anticoagulation with Eliquis.
2. Atrial tachycardia.
3. Hypertension.
4. Hyperlipidemia.
5. Congestive heart failure, preserved ejection fraction.
6. Venous varicosities.
7. Chronic kidney disease stage 3.
8. Esophagitis.
9. Hiatal hernia.
10. Colon polyps.
11. Diverticulosis.
12. Hemorrhoids.
13. Cholelithiasis, asymptomatic.
14. Mild cognitive impairment.
15. TIA 2010.
16. Degenerative disc disease.
17. Adenocarcinoma of lung, 2018, status post right upper lobectomy.
18. Right-sided breast cancer, 2014, status post right lumpectomy x2 and radiation.
19. Paget's disease, status post recent left lumpectomy.
20. Mild anemia.
21. Remote hepatitis and mononucleosis.
22. Osteopenia.
23. Remote history of tobacco abuse.
Past Surgical History: Reports Other
Additional Past Surgical History:
1. Atrial fibrillation ablation x2.
2. Cardioversion.
3. LINQ monitor implant and subsequent removal.
4. Right upper lobectomy.
5. Right lumpectomy x2.
6. Left lumpectomy.
7. Ectopic procedure x2.
8. Multiple colonoscopies.
9. Endoscopy.
Social History
Tobacco: Former Smoker (She is a former 1 pack per day cigarette smoker who quit tobacco altogether at 35 years old. )
Alcohol: None
Living: Alone (at [facility]. )
Family History
Family History: Not pertinent
Allergies / Home Medications
Allergy/Medication List:
Home medications:
1. Cholecalciferol 2000 units p.o. daily.
2. Cyanocobalamin 2500 mcg p.o. daily.
3. Eliquis 5 mg p.o. twice a day.
4. Furosemide 20 mg p.o. daily as needed.
5. Toprol XL 25 mg p.o. twice a day.
6. Pantoprazole 40 mg p.o. daily.
7. Rosuvastatin 5 mg p.o. daily.
Allergies: Amoxicillin.
Adverse drug reactions: Codeine (hypotension).
Review of Systems
-
A 12 point ROS was completed and negative except as noted: Yes
Physical Exam
Vital Signs
Blood pressure 102/65. Heart rate 63. Respirations 18. Pulse ox 98% on room air.
Height 5 feet, 7 inches. Weight 78.1 kg. BMI 27.0.
Physical Exam
General: Well Developed, Well Nourished and No Apparent Distress
HEENT: NormoCephalic, Moist mucous membranes, Atraumatic and PERRLA
Respiratory: Clear
Cardiac: Regular Rhythm
GI: Soft, Non Tender and Non Distended
Musculoskeletal: No Edema and Normal Gait & Station
Skin: Warm and Dry
Neuro: AO x 3 and Other (Mild cognitive deficits noted. )
Laboratory Results
-
DIAGNOSTIC STUDIES as of 10/13/2024: White blood cell count 4.8. Hemoglobin 11.5. Platelet count 242,000. PT 13.7. INR 1.02. Sodium 140. Potassium 4.1. BUN 32. Creatinine 1.3. Glucose 89. Calcium 9.2. Magnesium 2.0. AST 29. ALT 14. Albumin 4.1. Type
and screen AB positive.
EKG 10/13/2024: Sinus rhythm with first degree AV block. Left axis deviation. Pulmonary disease pattern.
Transesophageal echocardiogram 11/07/2023: Normal LV size and function with no regional wall motion abnormalities. Left ventricular ejection fraction is 55 to 60% by visual estimation. Normal RV size and function. No thrombus detected in the left
atrial appendage.
Impression/Plan
-
IMPRESSION/PLAN:
1. Paroxysmal atrial fibrillation: The patient is in need of pulmonary vein isolation with Dr. Jesus Del Rio on 10/20/2024. The benefits and risks of pulmonary vein isolation have been explained to the patient. The patient understands these
risks and wishes to proceed. She will not be required to undergo a pre-procedural transesophageal echocardiogram as she has been compliant with her home oral anticoagulation. She is aware to continue her Eliquis up until the night prior to her
procedure. She has been holding her previously prescribed Amiodarone since 10/06/2024. She will take no medications the morning of her procedure.
[2024-10-20] VITALS (17 sets, daily range): BP systolic 98–131; BP diastolic 62–82; BMI 27.0
[2024-10-20] MEDS: TYLENOL 1000 MG PO (07:15)
--- NOTE | 2024-10-20 07:48 | ITS.CL.ABL ---
Associate Sales Manager - Ablation
Ablation
Procedure Report:
ELECTROPHYSIOLOGIC STUDY AND POSSIBLE ABLATION
DATE: October 20, 2024
Primary Care Provider: Dr. Emanuel Madera
INDICATION:
Symptomatic Atrial Fibrillation and Atrial Tachycardia, Paroxysmal
HISTORY: See H and P.
Symptomatic AF, poorly controlled with attempted medical therapy.
Re atrial fibrillation, she had been previously followed at the [facility] and underwent ablation for AF there in 2010. She had TIA February 2010 (dysarthria for less than 24 hours).�
Due to symptomatic recurrences of atrial fibrillation she underwent PVI at [facility] September 27, 2016.
She had implanted loop recorder ([employer] LINQ).� Device showed no recurrence of atrial fibrillation and anticoagulation was discontinued.� The implanted device has shown no atrial fibrillation or atrial flutter�since implant�and ultimately reached
battery depletion, was removed 04/2024.
She then presented with atrial fibrillation and rapid ventricular rates as well as heart failure on 11/06/2023 and has had multiple symptomatic recurrences requiring emergency room evaluations. Recently placed on amiodarone at 200 mg twice daily.
While amiodarone has provided significant relief, she tells me that she strongly wishes to avoid lifelong amiodarone to manage her symptoms.
HAS-BLED:
Age
Abnormal Renal Function
CHADSVASc: 4
HFpEF, NYHA Class 2, LVEF 55%
HTN
Age
PRESENTING RHYTHM: SR
ANTIARRHYTHMIC DRUG: Amiodarone discontinued 14 days prior to presenting today
ANTICOAGULATION: Apixaban 5 mg twice daily
'TIME-OUT': called and confirmed.
SEDATION/ANESTHESIA: provided via the anesthesia department using general anesthesia.
PROCEDURE:
Ultrasound Guidance with real-time visualization of needle insertion and vessel patency performed by me for femoral venous Vascular Access.
Under real-time US guidance, the needle was advanced with negative pressure into the vein. The needle was seen entering the vessel lumen with a good return of dark red flow, the syringe was removed, non-pulsatile, dark red blood low was noted and
the wire was passed without difficulty, then the needle was removed. US confirmed the wire was in the vein, not going into an artery,
Images were taken and saved for the patient's permanent record. Imaging findings typical femoral venous anatomy. Direct visualization of needle puncture into the femoral vein was observed and recorded.
A decapolar CS catheter was placed within the CS for mapping and pacing.
The intracardiac ultrasound catheter was positioned in the RA for continuous intracardiac ultrasound imaging.
Heparin bolus and infusion to target ACT at 300 -350 seconds was administered. Transseptal puncture was performed. This entailed advancing a sheath with dilator into the superior vena cava and withdrawing both (monitoring intracardiac ultrasound,
fluoroscopy and tip pressure) with the tip oriented toward the atrial septum. The fossa ovalis was engaged (indicated by sudden displacement of the sheath tip as well as tenting of the fossa seen on intracardiac ultrasound).
Transseptal puncture was performed. Left atrial catheter position was confirmed by echocardiographic imaging, pressure monitoring (LA mean pressure 18 mm Hg) and fluoroscopy. The sheath was advanced over the dilator and positioned in the left
atrium.
The Summaya multipolar mapping/ablation Sphere-9 catheter was positioned through the transseptal sheath for high density mapping.
Geometry and voltage mapping was performed using the Summaya mapping system for three-dimensional electroanatomical mapping.
Catheter positioning was guided and confirmed using both I.C.E. and fluoroscopy.
Programmed electrical stimulation was performed and with burst atrial pacing as well as delivery of atrial decremental extrastimuli only nonsustained somewhat irregular atrial tachycardia cycle length between 303 130 ms was induced. No sustained
arrhythmia was induced.
Mapping demonstrates reconnection of the pulmonary veins at the ju[place]go between the right superior pulmonary veins anteriorly and the [place] of the left superior pulmonary veins towards the ligament of Anibal.
Additionally, mapping finds less than complete posterior wall electrical isolation. There is a cord or of electrical activity from the dome down to the floor of the posterior wall of the left atrium just right of midline.
Ablation strategy included PVI as well as mapping and ablation of extra PV contributors to atrial fibrillation (LA posterior wall, Floor of the left atrium):
- Electrical reisolation of the pulmonary veins by delivering pulsed electric field energy to the reconnected areas at the [place] between the right superior and right inferior pulmonary veins and also the [place] between the left superior and left
inferior pulmonary veins. This resulted in electrical isolation of the pulmonary veins
- Additional ablation lesion set was performed to isolate the posterior wall of the left atrium. This involved delivery of pulsed electric field energy to the strip of electrically active tissue found in the posterior wall of the left atrium
connecting the dome and the floor of the left atrium as this is felt to be a significant contributor to initiation and perpetuation of atrial tachyarrhythmias including atrial fibrillation. Delivery of pulse electric field energy here resulted in
complete electrical isolation of the posterior wall.
- Mapping also identified the floor of the left atrium as a potential significant contributor to initiation and perpetuation of atrial fibrillation. Here there are areas of marked fractionation and areas of patchy low voltage despite left atrial
posterior wall isolation and pulmonary venous isolation. Pulsed electric field energy was then delivered isolating the floor of the left atrium. Energy was delivered along the floor from the right inferior pulmonary vein to the left inferior
pulmonary vein.
Next, programmed electrical stimulation was performed and short duration sustained self terminating runs of left atrial tachycardia with earliest activation sequence along the septum of the left atrium was repeatedly induced.
- Isoproterenol infusion was begun and programmed electrical stimulation was repeated with drug infusion/isoproterenol infusion. Still sustained arrhythmia could not be induced. The same short duration self terminating atrial tachycardia/atrial
flutter was induced.
- Limited mapping suggested a macro reentrant circuit using a isthmus of slow conducting tissue along the mitral annulus anteriorly between the right superior pulmonary vein and the mitral valve annulus.
- Second tachycardia (mitral annular flutter) was then targeted with delivery of pulsed electric field energy. Pulsed electric field energy was delivered in a line from the right superior pulmonary vein anteriorly to the mitral valve annulus. At
completion of this line the delivery of programmed electrical stimulation now could induce no sustained or unsustained tachycardias.
I.C.E. :
Pre-Ablation Post-Ablation
LVEF: 55 % 55 %
WMA: none none
Pericardial effusion: none none
COMPLICATIONS:
None
SUMMARY:
- Mapping and ablation to isolate the PVs
- Additional AF ablation set after PVI.
- LA posterior wall ablation
- LA floor ablation
- Mapping and ablation of second tachycardia, Mitral annular flutter
- EP study during drug infusion
- 3-D Electroanatomical Mapping
- Intracardiac Ultrasound
- Ultrasound guidance for vascular access
Post ablation, I discussed today's findings and results with the patient's sonDean via phone call.
RECOMMENDATIONS:
- Observe in monitored bed.
- Maintain oral anticoagulation.
- Discontinue/do not resume amiodarone
- Office visit with me will be scheduled for February 27, 2025.
Copy to:
Dr. Emanuel Madera
[2024-10-20 08:42] LABS: ACT-LR - POC 277 Seconds (116-155)
[2024-10-20 09:02] LABS: ACT-LR - POC 334 Seconds (116-155)
[2024-10-20 09:25] LABS: ACT-LR - POC 368 Seconds (116-155)
--- NOTE | 2024-10-20 18:31 | PTCARENOTE ---
Received pt post ablation. VSS. Pt's right groin site w/ dressing clean, dry and intact. Discussed MD orders. Will monitor.
[2024-10-20] MEDS: TOPROL XL 25 MG PO (20:31)
[2024-10-20] MEDS: ELIQUIS 5 MG PO (20:31)
--- NOTE | 2024-10-20 22:10 | PTCARENOTE ---
Patient received at change of shift resting in the bed. Right groin puncture with gauze and tegaderm C/D/I, some ecchymosis noted but surrounding area is soft to palpation, pedal pulse palpable. Patient denies pain or discomfort. Sinus rhythm with
first degree AV block on telemetry. Oxygen saturation 99% on telemetry. Patient voiding appropriately in bathroom. Denies N/V. Plan of care discussed. Call muro within reach. Care ongoing.
[2024-10-21 03:29] VITALS: BP 104/68
[2024-10-21 03:32] VITALS: BP 104/68
[2024-10-21 04:13] LABS: Hematocrit 28.7 % (37.0-47.0); Hemoglobin 9.6 g/dL (12.0-16.0); Mean Corp Hgb Conc. 33.4 g/dL (33.0-37.0); Mean Corpuscular Hgb 31.6 pg (27.0-31.0); Mean Corpuscular Volume 94.4 fL (81.0-99.0); Mean Platelet Volume 9.5 fL (7.4-10.4); Platelet Count 188 10^3/uL (130-400); Red Blood Cell Count 3.04 10^6/uL (4.20-5.40); Red Cell Dist. Width 13.2 % (11.5-14.5)
[2024-10-21 04:38] LABS: Blood Urea Nitrogen 23 mg/dl (7-17); Carbon Dioxide 24 mmol/L (22-30); Chloride 111 mmol/L (98-107); Estimated Creatinine Clearance 40 ml/min; Glucose 129 mg/dl (70-99); Magnesium 2.2 mg/dl (1.6-2.3); Potassium 4.4 mmol/L (3.5-5.1); Sodium 140 mmol/L (135-145); eGFR 55.21
[2024-10-21 07:57] VITALS: BP 111/76
[2024-10-21] MEDS: PROTONIX 40 MG PO (08:20)
[2024-10-21] MEDS: ELIQUIS 5 MG PO (08:20)
[2024-10-21] MEDS: CRESTOR 5 MG PO (08:20)
[2024-10-21] MEDS: TOPROL XL 25 MG PO (08:20)
--- NOTE | 2024-10-21 10:14 | W.PN.CARDCBS ---
Today's Communication / Plan
-
home today
followup as scheduled
Impression / Plan
-
PCP: Emanuel Acevedo MD
CDY: Grzegorz Del Rio MD
84 y/o, PMH PAF w/prior PVI in 2010 (@[facility]) and redo in 2017 (@). At the time a linq was implanted that showed no afib and anticoagulation was discontinued. Linq removed in 04/2024. Now with recurrent symptomatic Afib with RVR, multiple ER visits,
failed cardioversion, medical therapy. [id number] (HTN, TIA, HFpEF, age, gender), maintained on eliquis. Presented to EP lab, s/p redo PFA as well as mitral flutter ablation.
IMPRESSION:
AFib/AFlutter/ATach
s/p PFA w/flutter ablation, 10/20/24
Prior PVI x2 (2010, 2016)
Chronic diastolic HFpEF, 55-60%
TIA (2009)
HTN
HLD
CKD3b
Esophagitis/HH/GERD
Lung CA, s/p lobectomy (2017)
Right BrCA, s/p lumpectomy x2, XRT (2013)
Linq implant (2016) and explant (2023)
PLAN:
groin site stable
Tele- SB/SR w/1st deg AVB as before, 50-60s
OOB ambulating
eliquis resumed last evening
continue metoprolol
followup with Dr. Del Rio as scheduled
home today
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
Subjective
Date of Service: October 21, 2024
denies cp/palps/dyspnea
oob ambulating
groin site without pain
Objective
Labs:
10/21/24 03:46
10/21/24 03:46
Labs
Hgb 9.6 g/dL (12.0-16.0) L 10/21/24 03:46
Hct 28.7 % (37.0-47.0) L 10/21/24 03:46
Plt Count 188 10^3/uL (130-400) 10/21/24 03:46
Sodium 140 mmol/L (135-145) 10/21/24 03:46
Potassium 4.4 mmol/L (3.5-5.1) 10/21/24 03:46
BUN 23 mg/dl (7-17) H 10/21/24 03:46
Creatinine 1.0 mg/dL (0.6-1.0) 10/21/24 03:46
Glucose 129 mg/dl (70-99) H 10/21/24 03:46
Vital Signs and I&O:
Vital Signs
Temp Pulse Resp BP Pulse Ox
98.0 F 68 16 111/76 98
10/21/24 07:58 10/21/24 08:30 10/21/24 07:58 10/21/24 08:20 10/21/24 07:58
Vital Signs
Temp Pulse Resp BP Pulse Ox
98.0 F 68 16 111/76 98
10/21/24 07:58 10/21/24 08:30 10/21/24 07:58 10/21/24 08:20 10/21/24 07:58
Intake & Output
10/19/24 10/20/24 10/21/24 10/22/24
06:59 06:59 06:59 06:59
Intake Total 1040 / 1040
Balance 1040 / 1040
Physical Exam
Physical Exam
AAOx3, MAEE 10/06
RRR S1 S2 no murmurs
CTA bilat, non labored
soft abd, + bs
right groin site without ht/bleeding, non tender
bilat extremities w/palpable distal pulses, no edema
--- NOTE | 2024-10-21 10:30 | W.DS.TRANS ---
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
-
Discharge Instructions:
Sleep Apnea Risk Low
Discharge Diagnosis/Procedures AFib, s/p ablation
Diet Low Cholesterol
Driving Restrictions No driving for 24 hours
Instructions:
Stand-Alone Forms: DC Instructions- Cath/EP Lab
Changes to Home Medications: No
Discharge Medications:
DC Medications w/original date entered in [facility]
rosuvastatin 5 mg tablet 5 mg PO DAILY High Cholesterol 11/05/23
apixaban 5 mg tablet (Eliquis) 5 mg PO BID Blood clot prevention/tx #60 tabs 11/07/23
cholecalciferol (vitamin D3) 50 mcg (2,000 unit) capsule (Vitamin D3) 2,000 unit PO DAILY 04/14/24
cyanocobalamin (vitamin B-12) 2,500 mcg tablet 2,500 mcg PO DAILY 07/18/24
metoprolol succinate 25 mg tablet,extended release 24 hr (Toprol XL) 25 mg PO BID Arrhythmia 07/29/24
furosemide 20 mg tablet (Lasix) 20 mg PO PRN PRN weight gain 09/17/24
pantoprazole 40 mg tablet,delayed release 40 mg PO DAILY 09/17/24
Home Medication Changes
Pending Results: No
--- NOTE | 2024-10-21 11:54 | CM ---
spoke to pt in room, she is prev indep, lives [place] at [place]. she deneis any dc planning needs or dme's. plan is for dc to home today.
== END 2024-10-21 10:43 | disposition home or self-care (01) ==
LOC: CATH 06:09
PROVIDERS: Nurse Practitioner; ATTENDING PHYSICIAN Internal Medicine Cardiovascular Disease; FAMILY PHYSICIAN Family Medicine
DX: I48.0 Paroxysmal atrial fibrillation (principal); I47.19 Other supraventricular tachycardia; I13.0 Hypertensive heart and chronic kidney disease with heart failure and stage 1 through stage 4 chronic kidney disease, or unspecified chronic kidney disease; I50.32 Chronic diastolic (congestive) heart failure; E78.5 Hyperlipidemia, unspecified; I83.90 Asymptomatic varicose veins of unspecified lower extremity; K44.9 Diaphragmatic hernia without obstruction or gangrene; Z86.0100 Personal history of colon polyps, unspecified; Z86.73 Personal history of transient ischemic attack (TIA), and cerebral infarction without residual deficits; I48.92 Unspecified atrial flutter; K21.00 Gastro-esophageal reflux disease with esophagitis, without bleeding; Z79.01 Long term (current) use of anticoagulants; Z87.19 Personal history of other diseases of the digestive system; K57.90 Diverticulosis of intestine, part unspecified, without perforation or abscess without bleeding; K80.20 Calculus of gallbladder without cholecystitis without obstruction; G31.84 Mild cognitive impairment of uncertain or unknown etiology; Z85.118 Personal history of other malignant neoplasm of bronchus and lung; Z85.3 Personal history of malignant neoplasm of breast; D64.9 Anemia, unspecified; M85.80 Other specified disorders of bone density and structure, unspecified site; Z87.891 Personal history of nicotine dependence; Z79.899 Other long term (current) drug therapy; Z88.0 Allergy status to penicillin; Z88.5 Allergy status to narcotic agent
CPT/HCPCS: C1733; C1894; C1769; C1766; C1730; C1892; 80048; 83735; 85027; 85347; 93005; 93655; 93656; 93657